=== PATIENT | female | born 1965 | race Caucasian/White ===

== ENCOUNTER 2017-12-13 15:28 | Emergency (ER) | payer BC, SELFPAY ==
[2017-12-13 15:34] VITALS: BP 138/92; RESP 16; TEMP 36.5; O2SAT 97
--- NOTE | 2017-12-13 15:50 | W.ED.GENAD ---
Discharge Plan Discharge Details Chief Complaint: AnimalBite Primary Care Provider: Danny Davies ED Provider: Owen Muller Home Meds and New Rx's Prescriptions: No Action venlafaxine 75 MG tablet 75 mg PO BID Qty: 180 RF: 0 Medical Decision Making 52-year-old female who was either bitten or scratched by a wild raccoon this morning in the left hand. She is otherwise healthy woman. She was given rabies immunoglobulin as well as vaccine and will require completion of the course through the outpatient setting, which I have ordered. Patient understands plan and return precautions. HPI General Mode of arrival: ambulatory. Date/Time Provider Initiated Documentation: 12/13/17 15:32. Limitations to Documentation: no limitations. Information obtained by: patient. History of Present Illness described as mild, and is localized to the left and upper extremity. Patient reports no radiation. Patient started experiencing this hour(s) and it has been constant. No relieving factors improve symptom(s), No exacerbating factors reported . HPI Narrative: Animal bite or scratch: 52-year-old female states she set out her cat's food this morning and was bitten or scratched by a wild raccoon on her long finger. She said that she applied alcohol and pressure to the wound which stopped the bleeding. She was then referred to the ER this afternoon by her primary care physician. She has otherwise been well. She was not injured in any way Related Data Home Medications Medication Instructions Recorded Confirmed venlafaxine 75 mg PO BID #180 tab-cap 10/03/17 12/13/17 Previous Rx's Medication Instructions Recorded venlafaxine 75 mg PO BID #180 tab-cap 10/03/17 Allergies Allergy/AdvReac Type Severity Reaction Status Date / Time citalopram AdvReac Unknown Unverified 12/13/17 15:39 General Stated Complaint: AnimalBite BRAD[place]ORD: 4 Review of Systems Review of Systems 6 systems reviewed and otherwise negative PFSH Family History Mother Substance abuse Essential hypertension Macular hole Heart disease Hyperlipidemia Father Substance abuse Essential hypertension Heart disease Hyperlipidemia Neoplasm Sister Hyperlipidemia Neoplasm Grandfather Essential hypertension Heart disease Hyperlipidemia Neoplasm Grandmother Diabetes Alzheimer disease Heart disease Son Essential hypertension Depression Daughter No problems noted. Medical History Anxiety Irritable colon Migraine Social History Smoking/Tobacco Use Status: Never Surgical History Cholecystectomy (~2000) dental surgery melanoma excision (~02/2015) Exam Narrative Exam Narrative: GEN: awake, alert, oriented 3. Pleasant, well groomed, interactive. HEAD: Normocephalic, atraumatic CHEST/RESP: Nontender, clear to auscultation bilateral, no wheeze/rhonchi/rales CARDIOVASCULAR: RRR, no murmur, rub tigist. 2+ Rad pulse bilateral EXT: Full ROM, no edema, no rash. Question subtle abrasion left long index finger volar aspect. Neuro: Grossly normal neurologic exam, conversant, interactive. Psych: Speech fluent, thoughts congruent, affect normal Course Vital Signs Temperature 36.5 C 12/13/17 15:34 Respiratory Rate 16 12/13/17 15:34 Blood Pressure 138/92 H 12/13/17 15:34 Pulse Oximetry 97 12/13/17 15:34 Temperature 36.5 C 12/13/17 15:34 Temperature Source Skin 12/13/17 15:34 Respiratory Rate 16 12/13/17 15:34 Respiratory Effort 12/13/17 15:37 Blood Pressure 138/92 H 12/13/17 15:34 Blood Pressure Position Sitting 12/13/17 15:34 Pulse Oximetry 97 12/13/17 15:34 Oxygen Delivery Method Room Air 12/13/17 15:34 Oxygen Flow Rate 0 12/13/17 15:34 Pain Level 0 12/13/17 15:34
--- NOTE | 2017-12-13 15:55 | ED.GENADUL_ITS ---
Discharge Plan Discharge Details Chief Complaint: AnimalBite Primary Care Provider: Danny Davies ED Provider: Owen Muller Home Meds and New Rx's Prescriptions: No Action venlafaxine 75 MG tablet 75 mg PO BID Qty: 180 RF: 0 Medical Decision Making 52-year-old female who was either bitten or scratched by a wild raccoon this morning in the left hand. She is otherwise healthy woman. She was given rabies immunoglobulin as well as vaccine and will require completion of the course through the outpatient setting, which I have ordered. Patient understands plan and return precautions. HPI General Mode of arrival: ambulatory . Date/Time Provider Initiated Documentation: 12/13/17 15:32 . Limitations to Documentation: no limitations . Information obtained by: patient . History of Present Illness described as mild, and is localized to the left and upper extremity. Patient reports no radiation. Patient started experiencing this hour(s) and it has been constant. No relieving factors improve symptom(s), No exacerbating factors reported . HPI Narrative: Animal bite or scratch: 52-year-old female states she set out her cat's food this morning and was bitten or scratched by a wild raccoon on her long finger. She said that she applied alcohol and pressure to the wound which stopped the bleeding. She was then referred to the ER this afternoon by her primary care physician. She has otherwise been well. She was not injured in any way Related Data Home Medications Medication Instructions Recorded Confirmed venlafaxine 75 mg PO BID #180 tab-cap 10/03/17 12/13/17 Previous Rx's Medication Instructions Recorded venlafaxine 75 mg PO BID #180 tab-cap 10/03/17 Allergies Allergy/AdvReac Type Severity Reaction Status Date / Time citalopram AdvReac Unknown Unverified 12/13/17 15:39 General Stated Complaint: AnimalBite BRAD[place]ORD: 4 Review of Systems Review of Systems 6 systems reviewed and otherwise negative PFSH Family History Mother Substance abuse Essential hypertension Macular hole Heart disease Hyperlipidemia Father Substance abuse Essential hypertension Heart disease Hyperlipidemia Neoplasm Sister Hyperlipidemia Neoplasm Grandfather Essential hypertension Heart disease Hyperlipidemia Neoplasm Grandmother Diabetes Alzheimer disease Heart disease Son Essential hypertension Depression Daughter No problems noted. Medical History Anxiety Irritable colon Migraine Social History Smoking/Tobacco Use Status: Never Surgical History Cholecystectomy (~2000) dental surgery melanoma excision (~02/2015) Exam Narrative Exam Narrative: GEN: awake, alert, oriented 3. Pleasant, well groomed, interactive. HEAD: Normocephalic, atraumatic CHEST/RESP: Nontender, clear to auscultation bilateral, no wheeze/rhonchi/rales CARDIOVASCULAR: RRR, no murmur, rub tigist. 2+ Rad pulse bilateral EXT: Full ROM, no edema, no rash. Question subtle abrasion left long index finger volar aspect. Neuro: Grossly normal neurologic exam, conversant, interactive. Psych: Speech fluent, thoughts congruent, affect normal Course Vital Signs Temperature 36.5 C 12/13/17 15:34 Respiratory Rate 16 12/13/17 15:34 Blood Pressure 138/92 H 12/13/17 15:34 Pulse Oximetry 97 12/13/17 15:34 Temperature 36.5 C 12/13/17 15:34 Temperature Source Skin 12/13/17 15:34 Respiratory Rate 16 12/13/17 15:34 Respiratory Effort 12/13/17 15:37 Blood Pressure 138/92 H 12/13/17 15:34 Blood Pressure Position Sitting 12/13/17 15:34 Pulse Oximetry 97 12/13/17 15:34 Oxygen Delivery Method Room Air 12/13/17 15:34 Oxygen Flow Rate 0 12/13/17 15:34 Pain Level 0 12/13/17 15:34
--- NOTE | 2017-12-13 16:07 | NUR.NOTE ---
message left with [facility] health officer gosia schaffer asking for a call back to report animal bite.Nursing Note:
--- NOTE | 2017-12-13 16:19 | NUR.NOTE ---
Jan [facility] Health Officer returned my call and bite report was given and faxed to the per diem clerk at [phone].Nursing Note:
[2017-12-13] MEDS: Rabies Immune Globulin 1,500 UNIT/5 ML VIAL 1200 UNITS IM (16:20)
[2017-12-13 16:35] VITALS: BP 138/92; PULSE 80; RESP 16; TEMP 36.5; O2SAT 97
== END 2017-12-13 16:34 | disposition home or self-care (01) ==
LOC: ER 16:17
PROVIDERS: Emergency Provider Emergency Medicine; PCP Family Medicine
DX: S61.253A Open bite of left middle finger without damage to nail, initial encounter (principal); Z20.3 Contact with and (suspected) exposure to rabies; W55.51XA Bitten by raccoon, initial encounter
CPT/HCPCS: 90471; 96372; 99284; 90675; 99283

== ENCOUNTER 2017-12-16 00:13 | Outpatient (RCR) | payer BC, SELFPAY | END 2017-12-17 23:59 | disposition home or self-care (01) | LOC: INF 00:13 | PROVIDERS: PCP Family Medicine; Visit Provider Emergency Medicine | DX: Z20.3 Contact with and (suspected) exposure to rabies (principal) | CPT/HCPCS: 96372; 90675 ==

== ENCOUNTER 2017-12-27 00:40 | Outpatient (RCR) | payer BC, SELFPAY | END 2018-01-17 23:59 | disposition home or self-care (01) | LOC: INF 00:40 | PROVIDERS: PCP Family Medicine; Visit Provider Emergency Medicine | DX: Z20.3 Contact with and (suspected) exposure to rabies (principal) | CPT/HCPCS: 96372; 90675 ==

== ENCOUNTER 2018-06-12 10:59 | Emergency (ER) | payer OTHER, BC, SELFPAY ==
[2018-06-12 11:09] VITALS: BP 154/98; PULSE 94; RESP 18; TEMP 36.7; O2SAT 97
[2018-06-12 11:28] LABS: Bilirubin Negative (Negative); Blood Small (Negative); Clarity Clear; Glucose Negative (Negative); Ketones Negative (Negative); Leukocyte Esterase Negative (Negative); Nitrite Negative (Negative); Specific Gravity 1.025 (1.005-1.025); Urobilinogen 0.2 EU/dL (Up TO 0.2); pH 5.5 (5-8)
[2018-06-12 11:36] LABS: Bacteria Few HPF (Negative); C & S Indicated? No; Casts Negative LPF (Negative); Crystals Negative HPF (Negative); Epithelial Cells Few HPF (Negative); Mucus Moderate (Negative); WBC 0-2 HPF (0-5)
--- NOTE | 2018-06-12 12:00 | DI.CT_ITS ---
SYMPTOMS/DIAGNOSIS: LEFT FLANK PAIN, ? KIDNEY STONES ABDOMINAL AND PELVIC CT: CT examination of the abdomen and pelvis was performed without contrast administration. Images obtained through the lung bases were unremarkable. Note is made of multiple homogeneous low attenuation hepatic masses, the largest about 34 mm in diameter in the left hepatic lobe, and the findings are consistent with multiple hepatic cysts. Gallbladder appears to have been surgically removed. No biliary dilatation seen. Pancreas is unremarkable by noncontrast criteria. Spleen is unremarkable in appearance. Abdominal aorta is of normal diameter. No significant abdominal wall hernia seen. No significant abdominal or pelvic adenopathy identified. Appendix is normal. No evidence of bowel obstruction. There is wall thickening of the distal descending colon and proximal sigmoid and there is associated pericolonic fat edema at the descending sigmoid junction. Findings are consistent with acute diverticulitis. No evidence of perforation or abscess formation. Incidental note is also made of a lobulated left adnexal mass, which is of low attenuation and which measures up to about 7 cm in diameter. The findings are consistent with ovarian cysts, but other etiologies including neoplastic disease cannot be excluded in this age group. Correlation with pelvic ultrasound recommended. CONCLUSION: 1. Findings consistent with acute diverticulitis at the descending sigmoid junction, no evidence of abscess or perforation. 2. Left adnexal mass, likely cystic but pelvic ultrasound recommended to exclude neoplastic disease. 3. Numerous hepatic masses with appearance consistent with cysts.
--- NOTE | 2018-06-12 12:14 | ED.GENADUL_ITS ---
Discharge Plan Disposition Patient Disposition: HOME Condition: Stable Discharge Details Chief Complaint: FlankPain Clinical Impression: Acute diverticulitis, Mass of left ovary Primary Care Provider: Danny Davies ED Provider: Lyly Jansen Home Meds and New Rx's Prescriptions: New ciprofloxacin HCl 500 mg tablet 500 mg PO BID 10 Days Qty: 20 RF: 0 metronidazole [Flagyl] 500 mg tablet 500 mg PO TID 10 Days Qty: 30 RF: 0 Continued MegaRed Ninole-3 Krill Oil [id number] mg capsule 1 cap PO DAILY RF: 0 multivitamin with minerals [Hair,Skin and Nails] tablet 3 tab PO DAILY RF: 0 venlafaxine 75 mg tablet 75 mg PO BID Qty: 180 RF: 0 Discharge Instructions Instructions: Diverticulitis (ED), Diverticulitis Diet (ED) Additional Instructions: Take the antibiotics as directed until finished. Take Tylenol or Motrin as needed and directed for pain. Call your primary care doctor tomorrow to schedule a follow-up appointment for reevaluation of your diverticulitis and for referral for an outpatient pelvic ultrasound for further evaluation of the ovarian mass noted on your CAT scan. Return immediately to the emergency department any worsening or new concerning symptoms. Discharge Data Discharge Physician: Lyly Jansen Medical Decision Making 52-year-old female presents with intermittent sharp left lower quadrant abdominal pain and bloody diarrhea. Pain present for 5 days, 1 day of bloody diarrhea, none for the past 3 days. Patient arrived while the ER was experiencing a medical surge. Based on her triage complaint, labs and CT for renal colic were ordered based on left flank pain. Upon my evaluation, vitals within normal limits. Patient has tenderness to palpation of her left lower quadrant. Pt is post-menopausal. CT reviewed with radiology and notes sigmoid and descending colon diverticulitis. There is also noted a large multi lobulated ovarian mass and recommended outpatient ultrasound for further evaluation of this. Labs pending. Will continue IV fluids and give a dose of Toradol. If labs within normal limits, okay to discharge to home. 1500 --labs reviewed and note a white blood cell count of 13.74. Potassium 3.2, given 40 mEq of potassium p.o. Urinalysis negative. Labs and imaging reviewed with surgery Dr. Argueta. As patient is hemodynamically stable, and appears nontoxic, even though the white count is 13, appears appropriate for discharge to home. Patient last had a colonoscopy in 2014. Patient feels good to go home. She is instructed to call her primary care doctor for reevaluation this week for data for diverticulitis and for referral for outpatient ultrasound for further evaluation of the left ovarian mass. Patient instructed return here immediately with any worsening symptoms such as fever or worsening pain. Medical Records Medical records reviewed: Yes I reviewed the patient's medical records. Imaging Data Radiologic Study: Radiologist's impression: ABDOMINAL AND PELVIC CT: CT examination of the abdomen and pelvis was performed without contrast administration. Images obtained through the lung bases were unremarkable. Note is made of multiple homogeneous low attenuation hepatic masses, the largest about 34 mm in diameter in the left hepatic lobe, and the findings are consistent with multiple hepatic cysts. Gallbladder appears to have been surgically removed. No biliary dilatation seen. Pancreas is unremarkable by noncontrast criteria. Spleen is unremarkable in appearance. Abdominal aorta is of normal diameter. No significant abdominal wall hernia seen. No significant abdominal or pelvic adenopathy identified. Appendix is normal. No evidence of bowel obstruction. There is wall thickening of the distal descending colon and proximal sigmoid and there is associated pericolonic fat edema at the descending sigmoid junction. Findings are consistent with acute diverticulitis. No evidence of perforation or abscess formation. Incidental note is also made of a lobulated left adnexal mass, which is of low attenuation and which measures up to about 7 cm in diameter. The findings are consistent with ovarian cysts, but other etiologies including neoplastic disease cannot be excluded in this age group. Correlation with pelvic ultrasound recommended. CONCLUSION: 1. Findings consistent with acute diverticulitis at the d escending sigmoid junction, no evidence of abscess or perforation. 2. Left adnexal mass, likely cystic but pelvic ultrasound recommended to exclude neoplastic disease. 3. Numerous hepatic masses with appearance consistent with cysts. Lab Data Lab results reviewed: Yes I reviewed the patient's lab results. Laboratory Tests Range/Units 06/12/18 06/12/18 06/12/18 11:15 13:10 13:10 WBC Cancelled RBC Cancelled Hgb Cancelled Hct Cancelled MCV Cancelled MCH Cancelled MCHC Cancelled RDW Cancelled Plt Count Cancelled MPV Cancelled Immature Gran % Cancelled Neutrophils % Cancelled Band Neutrophils % Cancelled Lymphocytes % Cancelled Atypical Lymphs % Cancelled Monocytes % Cancelled Eosinophils % Cancelled Basophils % Cancelled Metamyelocytes % Cancelled Myelocytes % Cancelled Promyelocytes % Cancelled Absolute Neutrophils Cancelled Absolute Lymphocytes Cancelled Absolute Monocytes Cancelled Absolute Eosinophils Cancelled Absolute Basophils Cancelled Nucleated RBCs Cancelled Differential Comment Cancelled Other Cell Type Cancelled RBC Morphology Cancelled Polychromasia Cancelled Hypochromasia Cancelled Poikilocytosis Cancelled Basophilic Stippling Cancelled Anisocytosis Cancelled Microcytosis Cancelled Macrocytosis Cancelled Spherocytes Cancelled Target Cells Cancelled Tear Drop Cells Cancelled Ovalocytes Cancelled Stomatocytes Cancelled Thao-[place] Bodies Cancelled Fred Cells Cancelled Acanthocytes (Spur) Cancelled Schistocytes Cancelled Sodium Cancelled Potassium Cancelled Chloride Cancelled Carbon Dioxide Cancelled Anion Gap Cancelled BUN Cancelled Creatinine Cancelled Estimated GFR/1.73 m2 Cancelled Glucose Cancelled Calcium Cancelled Total Bilirubin Cancelled AST Cancelled ALT Cancelled Alkaline Phosphatase Cancelled Total Protein Cancelled Albumin Cancelled Lipase Cancelled Urine Color (Yellow) Yellow Urine Clarity Clear Urine pH (5-8) 5.5 Ur Specific [place] (1.005-1.025) 1.025 Urine Protein (Negative) mg/dL Negative Urine Ketones (Negative) mg/dL Negative Urine Blood (Negative) Small H Urine Nitrite (Negative) Negative Urine Bilirubin (Negative) Negative Urine Urobilinogen (Up TO 0.2) EU/dL 0.2 Ur Leukocyte Esterase (Negative) Negative Urine RBC (0-2) 3-5 H Urine WBC (0-5) HPF 0-2 Ur Epithelial Cells (Negative) HPF Few Urine Crystals (Negative) HPF Negative Urine Bacteria (Negative) HPF Few Urine Casts (Negative) LPF Negative Urine Mucus (Negative) Moderate Ur Culture Indicated? No Urine Glucose (Negative) mg/dL Negative Range/Units 06/12/18 06/12/18 13:49 13:49 WBC 13.74 H RBC 4.16 Hgb 12.6 Hct 36.6 MCV 88.0 MCH 30.3 MCHC 34.4 RDW 12.6 Plt Count 307 MPV 9.4 Immature Gran % 0.3 Neutrophils % 71.9 Band Neutrophils % Lymphocytes % 18.1 Atypical Lymphs % Monocytes % 8.2 Eosinophils % 1.4 Basophils % 0.1 Metamyelocytes % Myelocytes % Promyelocytes % Absolute Neutrophils 9.88 H Absolute Lymphocytes 2.49 Absolute Monocytes 1.13 H Absolute Eosinophils 0.19 Absolute Basophils 0.01 Nucleated RBCs Differential Comment Other Cell Type RBC Morphology Polychromasia Hypochromasia Poikilocytosis Basophilic Stippling Anisocytosis Microcytosis Macrocytosis Spherocytes Target Cells Tear Drop Cells Ovalocytes Stomatocytes Thao-Guayanilla Bodies Fred Cells Acanthocytes (Spur) Schistocytes Sodium 141 Potassium 3.2 L Chloride 103 Carbon Dioxide 28.6 Anion Gap 9.4 BUN 13 Creatinine 0.81 Estimated GFR/1.73 m2 >= 60.00 Glucose 98 Calcium 9.8 Total Bilirubin 0.4 AST 22 ALT 32 Alkaline Phosphatase 70 Total Protein 6.6 Albumin 3.3 L Lipase 162 Urine Color (Yellow) Urine Clarity Urine pH (5-8) Ur Specific [place] (1.005-1.025) Urine Protein (Negative) mg/dL Urine Ketones (Negative) mg/dL Urine Blood (Negative) Urine Nitrite (Negative) Urine Bilirubin (Negative) Urine Urobilinogen (Up TO 0.2) EU/dL Ur Leukocyte Esterase (Negative) Urine RBC (0-2) Urine WBC (0-5) HPF Ur Epithelial Cells (Negative) HPF Urine Crystals (Negative) HPF Urine Bacteria (Negative) HPF Urine Casts (Negative) LPF Urine Mucus (Negative) Ur Culture Indicated? Urine Glucose (Negative) mg/dL HPI General Mode of arrival: ambulatory . Date/Time Provider Initiated Documentation: 06/12/18 11:30 . Limitations to Documentation: no limitations . Information obtained by: patient . HPI Narrative: Patient is a 52-year-old female who presents with intermittent left lower quadrant pain for the past 5 days. Patient states the pain feels sharp, intermittent and occasionally with radiation to her left flank. She states the pain is now 5/10. She states the pain first started 5 days ago, followed by bloody diarrhea the next day. She st ates her last bowel movement was 3 days ago. She states her pain resolved for 2 days and then returned again last night. She admits to occasional nausea. She denies fever, vomiting, recent antibiotics or urinary symptoms. Related Data Home Medications Medication Instructions Recorded Confirmed venlafaxine 75 mg tablet 75 mg PO BID #180 tab-cap 04/06/18 06/12/18 ciprofloxacin HCl 500 mg PO BID 10 Days #20 tab 06/12/18 krill 500 mg-omega 3 115 mg-dha 30 1 cap PO DAILY 06/12/18 06/12/18 mg-epa 64 [id number] capsule metronidazole [Flagyl] 500 mg PO TID 10 Days #30 tab 06/12/18 multivitamin with minerals tablet 3 tab PO DAILY tab 06/12/18 06/12/18 Previous Rx's Medication Instructions Recorded venlafaxine 75 mg tablet 75 mg PO BID #180 tab-cap 04/06/18 ciprofloxacin HCl 500 mg PO BID 10 Days #20 tab 06/12/18 metronidazole [Flagyl] 500 mg PO TID 10 Days #30 tab 06/12/18 Allergies Allergy/AdvReac Type Severity Reaction Status Date / Time citalopram AdvReac Unknown Unverified 06/12/18 10:20 General Stated Complaint: FlankPain BRADFORD: 3 Review of Systems Review of Systems All systems reviewed & are unremarkable except as noted in HPI and below Constitutional Reports as per HPI, Denies chills and Denies fever(s) Eyes Denies blurry vision ENT Denies dizziness, Denies sore throat and Denies throat swelling Cardiovascular Denies chest pain and Denies dyspnea Respiratory Denies cough and Denies dyspnea Gastrointestinal Reports abdominal pain, Reports diarrhea, Reports nausea and Denies vomiting Genitourinary Denies hematuria and Denies dysuria Musculoskeletal Denies back pain and Denies numbness Integumentary/Breasts Denies lesions and Denies rash Neurologic Denies dizziness, Denies focal weakness and Denies numbness Allergic/Immunologic Denies throat swelling PFSH Medical History Anxiety Irritable colon Migraine Surgical History Cholecystectomy (~2000) dental surgery melanoma excision (~02/2015) Family History Mother Substance abuse Essential hypertension Macular hole Heart disease Hyperlipidemia Father Substance abuse Essential hypertension Heart disease Hyperlipidemia Neoplasm Sister Hyperlipidemia Neoplasm Grandfather Essential hypertension Heart disease Hyperlipidemia Neoplasm Grandmother Diabetes Alzheimer disease Heart disease Son Essential hypertension Depression Daughter No problems noted. Social History Smoking/Tobacco Use Status: Never Alcohol Intake: never Drug use: Never Substance use type: does not use Do you feel safe at home: Yes Do you feel safe in your relationship?: Yes Exam Const General: cooperative and healthy appearing Orientation: alert and awake HENVA Head: normal to inspection Ears: hearing grossly normal bilaterally and external ears normal General nose exam: external nose normal Face and sinus: normal facial exam Mouth: oral mucosae normal Eyes General: appearance normal, both eyes and all related structures Eyelids: eyelids normal EOM: EOM intact bilaterally Neck Neck: normal visual inspection Lymphatic: no lymphadenopathy noted Chest Chest: normal inspection of the chest Resp Effort & Inspection: normal respiratory effort and able to speak in complete sentences Auscultation: clear to auscultation bilaterally Cardio Rate: regular rate Rhythm: regular rhythm GI Inspection: normal to inspection Palpation: soft, not firm, no guarding, no hepatosplenomegaly, no masses and tender in the LLQ Auscultation: normal bowel sounds Back/Spine/Pelvis Back: no CVA tenderness Skin General skin exam: no rashes or lesions noted Neuro General: alert and awake Cognition: normal cognition Speech: speech normal Gait: normal gait Motor: muscle tone normal throughout Sensory Exam: no sensory deficits noted Extrem General: normal to inspection, full ROM, normal capillary refill and no edema Psych Appearance: grossly normal Mental Status: mental status grossly normal Speech and Movement: speech and movement normal Affect: normal affect Thought Process: normal Course Vital Signs Temperature 98.1 F 06/12/18 11:09 Pulse 94 H 06/12/18 11:09 Respiratory Rate 18 06/12/18 11:09 Blood Pressure 154/98 H 06/12/18 11:09 Pulse Oximetry 97 06/12/18 11:09 Temperature 98.1 F 06/12/18 11:09 Temperature Source Temporal Artery Scan 06/12/18 11:09 Pulse 94 H 06/12/18 11:09 Respiratory Rate 18 06/12/18 11:09 Respiratory Effort Non-Labored 06/12/18 11:11 Blood Pressure 154/98 H 06/12/18 11:09 Blood Pressure Position Sitting 06/12/18 11:09 Pulse Oximetry 97 06/12/18 11:09 Oxygen Delivery Method Room Air 06/12/18 11:09 Oxygen Flow Rate 0 06/12/18 11:09 Pain Level 8 06/12/18 11:09 Comment 06/12/18 11:09 Lab/Test Results Lab/Test Results: Laboratory Tests Range/Units 06/12/18 11:15 Urine Color (Yellow) Yellow Urine Clarity Clear Urine pH (5-8) 5.5 Ur Specific [place] (1.005-1.025) 1.025 Urine Protein (Negative) mg/dL Negative Urine Ketones (Negative) mg/dL Negative Urine Blood (Negative) Small H Urine Nitrite (Negative) Negative Urine Bilirubin (Negative) Negative Urine Urobilinogen (Up TO 0.2) EU/dL 0.2 Ur Leukocyte Esterase (Negative) Negative Urine RBC (0-2) 3-5 H Urine WBC (0-5) HPF 0-2 Ur Epithelial Cells (Negative) HPF Few Urine Crystals (Negative) HPF Negative Urine Bacteria (Negative) HPF Few Urine Casts (Negative) LPF Negative Urine Mucus (Negative) Moderate Ur Culture Indicated? No Urine Glucose (Negative) mg/dL Negative
[2018-06-12 12:55] VITALS: BP 120/78; PULSE 79; RESP 14; TEMP 37.1; O2SAT 97
[2018-06-12] MEDS: Normal Saline 1,000 ML 1000 ML IV ×2 (13:25→14:09)
[2018-06-12 13:55] LABS: Abs Immature Grans 0.04 k/cumm (0.0-0.09); Absolute Eosinophil Count 0.19 k/cumm (0.0-0.7); Absolute Lymphocyte Count 2.49 k/cumm (1.2-3.4); Absolute Monocyte Count 1.13 k/cumm (0.11-0.7); Basophils % 0.1; Eosinophils % 1.4; HCT 36.6 % (36.0-46.0); HGB 12.6 g/dL (12.0-15.5); Immature Grans % 0.3; Lymphocytes % 18.1; Mean Corp. HGB Concentration 34.4 g/dL (32.0-36.0); Mean Corpuscular Hemoglobin 30.3 pg (27.0-33.0); Mean Platelet Volume 9.4 fL (8.0-11.0); Monocytes % 8.2; Neutrophils % 71.9; Platelet Count 307 x1000/uL (130-400); RBC 4.16 m/cumm (4.00-5.20); RBC Distribution Width 12.6 % (11.7-14.6); White Blood Cell Count 13.74 k/cumm (4.4-10.8)
[2018-06-12 13:56] LABS: Absolute Basophil Count 0.01 k/cumm (0.0-0.2); Absolute Neutrophil Count 9.88 k/cumm (1.2-6.7)
[2018-06-12] MEDS: Ketorolac 30 MG/ML VIAL IVP (14:08)
[2018-06-12 14:09] LABS: ALT 32 U/L (12-78); AST 22 U/L (15-37); Albumin 3.3 g/dL (3.4-5.0); Alkaline Phosphatase 70 U/L (46-116); Anion Gap 9.4 mmol/L (3-11); BUN 13 mg/dL (7-18); Bilirubin, Total 0.4 mg/dL (0.2-1.0); CO2 28.6 mmol/L (21.0-32.0); CREATININE 0.81 mg/dL (0.55-1.02); Calcium 9.8 mg/dL (8.5-10.1); Chloride 103 mmol/L (98-107); Glucose 98 mg/dL (70-100); Lipase 162 U/L (73-393); Potassium 3.2 mmol/L (3.5-5.1); Sodium 141 mmol/L (136-145); Total Protein 6.6 g/dL (6.4-8.2)
[2018-06-12] MEDS: metroNIDAZOLE 500 MG TAB PO (14:58)
[2018-06-12] MEDS: Potassium Chloride 20 MEQ TABCR 40 MEQ PO (14:58)
[2018-06-12] MEDS: Ciprofloxacin 500 MG TAB PO (14:58)
== END 2018-06-12 15:18 | disposition home or self-care (01) ==
PROVIDERS: Emergency Provider Physician Assistant; PCP Family Medicine
DX: K57.30 Diverticulosis of large intestine without perforation or abscess without bleeding (principal); N83.9 Noninflammatory disorder of ovary, fallopian tube and broad ligament, unspecified
CPT/HCPCS: 80053; 83690; 96361; 96374; 99284; 74176; 81003; 81015; 85025; J1885

== ENCOUNTER 2018-06-29 00:23 | Outpatient (CLI) | payer OTHER, SELFPAY ==
--- NOTE | 2018-06-29 13:54 | DI.US_ITS ---
SYMPTOMS/DIAGNOSIS: LEFT ADNEXA MASS, OVARIAN MASS, N83.9 PELVIC ULTRASOUND: Pelvic ultrasound was performed transabdominally and transvaginally. Please see the accompanying data sheet for measurements of the pelvic structures. The uterus is unremarkable in appearance with a 4 mm thick homogeneous endometrial stripe. There is septated cystic left ovarian mass. There are areas of thickening of the septation and also wall thickening appears to be present. The findings as described are indeterminate and the possibility of neoplastic disease in this age group is not excluded. No previous pelvic ultrasound available for comparison. No free fluid identified in the cul-de-sac. Limited scanning of the kidneys is unremarkable. CONCLUSION: Indeterminate left adnexal mass as noted on recent CT, this measures up to about 7 cm in diameter. Biopsy is suggested to rule out neoplastic disease.
== END 2018-06-29 00:43 ==
PROVIDERS: PCP Family Medicine; Visit Provider Family Medicine
DX: N83.292 Other ovarian cyst, left side (principal); R19.09 Other intra-abdominal and pelvic swelling, mass and lump
CPT/HCPCS: 76830; 76856

== ENCOUNTER 2019-01-30 07:00 | Outpatient (CLI) | payer OTHER, SELFPAY ==
[2019-01-30 12:43] LABS: Abs Immature Grans 0.03 k/cumm (0.0-0.09); Absolute Basophil Count 0.03 k/cumm (0.0-0.2); Absolute Eosinophil Count 0.15 k/cumm (0.0-0.7); Absolute Lymphocyte Count 3.14 k/cumm (1.2-3.4); Absolute Monocyte Count 0.89 k/cumm (0.11-0.7); Absolute Neutrophil Count 8.31 k/cumm (1.2-6.7); Basophils % 0.2; Eosinophils % 1.2; HCT 38.4 % (36.0-46.0); HGB 12.7 g/dL (12.0-15.5); Immature Grans % 0.2; Mean Corp. HGB Concentration 33.1 g/dL (32.0-36.0); Mean Corpuscular Hemoglobin 29.1 pg (27.0-33.0); Mean Corpuscular Volume 88.1 fL (80-95); Mean Platelet Volume 9.9 fL (8.0-11.0); Monocytes % 7.1; Neutrophils % 66.3; Platelet Count 386 x1000/uL (130-400); RBC 4.36 m/cumm (4.00-5.20); RBC Distribution Width 12.5 % (11.7-14.6); White Blood Cell Count 12.54 k/cumm (4.4-10.8)
[2019-01-30 13:56] LABS: ALT 22 U/L (14-59); AST 14 U/L (15-37); Albumin 3.9 g/dL (3.4-5.0); Alkaline Phosphatase 79 U/L (46-116); Anion Gap 6.3 mmol/L (3-11); BUN 16 mg/dL (7-18); Bilirubin, Total 0.4 mg/dL (0.2-1.0); CO2 31.7 mmol/L (21.0-32.0); CREATININE 0.89 mg/dL (0.55-1.02); Calcium 9.3 mg/dL (8.5-10.1); Chloride 103 mmol/L (98-107); Glucose 90 mg/dL (70-100); Potassium 3.3 mmol/L (3.5-5.1); Sodium 141 mmol/L (136-145); Total Protein 7.3 g/dL (6.4-8.2)
== END 2019-01-30 07:20 ==
PROVIDERS: PCP Family Medicine; Visit Provider Family Medicine
DX: K57.92 Diverticulitis of intestine, part unspecified, without perforation or abscess without bleeding (principal)
CPT/HCPCS: 36415; 80053; 85025

== ENCOUNTER 2019-01-30 15:02 | Outpatient (CLI) | payer OTHER, SELFPAY ==
--- NOTE | 2019-01-30 16:05 | DI.CT_ITS ---
EXAM: CT ABDOMEN PELVIS W CLINICAL HISTORY: lower mid abdominal pain radiates back. + rebound,acute TECHNIQUE: Post IV and oral contrast COMPARISON: CT renal colic wo from 06/12/2018 FINDINGS: There is motion on the mid portion of the scan. There is marked wall thickening in the sigmoid colo n in region of numerous diverticulae. There is stranding in the surrounding fat consistent with dive rticulitis. There is no evidence of abscess or perforation. The appendix appears normal. There is no small bowel dilatation. The lung bases are clear. The liver again shows multiple cysts. The patie nt is status post cholecystectomy. There is motion at the inferior aspect of the liver and region o f the pancreas and lower poles of the kidneys. The spleen is normal in size. Previously noted left adnexal cystic lesions are no longer present. The left ovary is not seen. The bladder is unremarkab le although there is some mass effect on the lateral aspect of the bladder. There is a fatty contain ing right inguinal hernia. The aorta is normal in diameter. IMPRESSION: Severe sigmoid diverticulitis. No evidence of perforation or abscess.
[2019-01-30] MEDS: Breeza Beverage 473 ML BTL PO ×2 (16:09→16:10)
[2019-01-30] MEDS: Omnipaque 350 MG/ML 100 ML BTL 81 ML IJ (16:09)
[2019-01-30] MEDS: Omnipaque 350 MG/ML 50 ML BTL PO (16:10)
--- NOTE | 2019-01-30 16:39 | DI.VRAD_ITS ---
PROCEDURE INFORMATION: Exam: CT Abdomen And Pelvis With Contrast Exam date and time: 01/30/2019 4:00 PM Clinical history: 53 years old, female; Localized; Patient HX: Low and mid abdominal pain radiates to lower back plus rebound acute. Diverticulitis. TECHNIQUE: Imaging protocol: Computed tomography of the abdomen and pelvis with intravenous contrast. Radiation optimization: All CT scans at this facility use at least one of these dose optimization techniques: automated exposure control; mA and/or kV adjustment per patient size (includes targeted exams where dose is matched to clinical indication); or iterative reconstruction. Contrast material: OMNIPAQUE 350; Contrast volume: 81 ml; Contrast route: IV; COMPARISON: US PELVIS TRANSVAGINAL 06/29/2018 6:50 AM FINDINGS: Liver: Small hypodensities in the liver too small to completely characterize but statistically usually represents a benign cyst or hemangioma. The largest is a benign cyst measuring 3.4 cm. Small amount of fluid at the inferior aspect of the liver. Gallbladder and bile ducts: There are surgical clips in gallbladder fossa but no biliary tract calculi. Pancreas: Normal. No ductal dilation. Spleen: Normal. No splenomegaly. Adrenals: Normal. No mass. Kidneys and ureters: Normal. No hydronephrosis. Stomach and bowel: Oral contrast is passed to the stomach and nondilated small bowel into the colon scars the mid transverse colon. There is severe mucosal thickening of the sigmoid colon with a large amount of ill-defined inflammatory reaction is a small amount of strand-like fluid around this area. Appendix: No evidence of appendicitis. Intraperitoneal space: There is no well-defined fluid collection or distal extraluminal air. Vasculature: Unremarkable. No abdominal aortic aneurysm. Lymph nodes: Unremarkable. No enlarged lymph nodes. Bladder: Unremarkable as visualized. Reproductive: Unremarkable as visualized. Bones/joints: Moderate degenerative change facet joints lower lumbar spine. Soft tissues: Unremarkable. IMPRESSION: Severe diverticulitis of the sigmoid colon without evidence of abscess or distal extraluminal air the site of the diverticulitis is slightly more distal than that occurred on 06/12/2018. SIGNIFICANT FINDING REPORT Dictated and Authenticated by: Piter Ferrell MD. Ordering:KIRT Delgado MD
== END 2019-01-30 15:22 ==
LOC: DI 15:05 → MS 18:52 → DI 11-24 00:09
PROVIDERS: PCP Family Medicine; Visit Provider Family Medicine
DX: R10.31 Right lower quadrant pain (principal); K63.89 Other specified diseases of intestine; K57.30 Diverticulosis of large intestine without perforation or abscess without bleeding; K76.89 Other specified diseases of liver
CPT/HCPCS: 74177; J3490; Q9967

== ENCOUNTER 2019-01-30 20:08 | Inpatient (IN) | payer OTHER, SELFPAY ==
[2019-01-30 18:49] VITALS: BP 151/96; PULSE 88; RESP 16; TEMP 37.4; O2SAT 100
[2019-01-30 19:20] VITALS: O2SAT 98
[2019-01-30] MEDS: CIPROFLOXACIN 400 MG/200 ML BAG 200 MG IVPB (20:49)
[2019-01-30] MEDS: POTASSIUM CHLORIDE 20 MEQ/100 ML BAG 50 MEQ IVPB (20:49)
[2019-01-30] MEDS: Normal Saline 1,000 ML 125 ML IV (20:49)
[2019-01-30] MEDS: Potassium Chloride 20 MEQ TABCR 40 MEQ PO (20:50)
[2019-01-30] MEDS: Magnesium Oxide 400 MG TAB PO (20:50)
[2019-01-30] MEDS: Venlafaxine 75 MG TAB PO (21:19)
--- NOTE | 2019-01-30 21:49 | W.PM.HP.N ---
Date of service: 01/30/19 Time of Service: 21:49 Assessment and Plan Assessment and plan (1) Acute diverticulitis: Status: Acute Assessment and plan: this is her #2 attack this year. cont conservative management- IV cipro/flagyl. bowel rest. supportive care prob repeat CE in 4-6wks . Has hx of adenomatous polyp. History of Present Illness Consults Consult date: 01/30/19 Narrative: pt seen adn examined. Came to see personnel today regarding L sided abdomen pain since Monday. It started on left side and radiates into back. no fever/chills. no n/v. no appetite. + diarrhea. no blood. She had a CT today and results reviewed. She had a minor attack back in July- she was tx on outpt basis w/ PO abx. She was found to have a 7cm ovarian mass and had b/l SO. She has had no problems recovering from this. She does not appear to have that much pain or be toxic/septic. She has a lifelong Hx of constipation/straining. Her younger sister is having diverticular sx next week- also having signif problems w/ divertic. Parents have no problems. denies travel/trauma. no one else at home is ill. CT reviewed. Review of Systems All systems reviewed & are unremarkable except as noted in HPI and below PFSH Medical History Anxiety Irritable colon Migraine Surgical History Cholecystectomy (~2000) dental surgery melanoma excision (~02/2015) Family History Mother Substance abuse Essential hypertension Macular hole Heart disease Hyperlipidemia Father Substance abuse Essential hypertension Heart disease Hyperlipidemia Neoplasm SKIN Sister Hyperlipidemia Neoplasm SKIN Grandfather Essential hypertension Heart disease Hyperlipidemia Neoplasm pancreatic/liver Grandmother Diabetes Alzheimer disease Heart disease Son Essential hypertension Depression Daughter No problems noted. Social History Smoking/Tobacco Use Status: Never Alcohol Intake: never Drug use: Never Substance use type: does not use Do you feel safe at home: Yes Do you feel safe in your relationship?: Yes Meds Home Medications and Allergies Home Medications Medication Instructions Recorded Confirmed Type multivitamin with minerals 3 tab PO DAILY tab 06/12/18 01/30/19 History venlafaxine 75 mg tablet 75 mg PO BID #180 tab-cap 07/02/18 01/30/19 Rx mv,Ca,min-iron [id number] 1 tab PO DAILY 01/30/19 01/30/19 History [Hair,Skin and Nails] Allergies Allergy/AdvReac Type Severity Reaction Status Date / Time citalopram AdvReac Unknown Unverified 01/30/19 19:05 Exam Const General: cooperative, healthy appearing, comfortable, no acute distress, well developed and well groomed Nutritional Appearance: average body habitus and well nourished Orientation: alert, awake and oriented x3 HENMT Head: normal to inspection, normocephalic and atraumatic Ears: hearing grossly normal bilaterally and external ears normal General nose exam: external nose normal Face and sinus: normal facial exam and sinuses nontender Mouth: oral mucosae normal, lip normal, tongue normal and moist mucous membranes Teeth and gingiva: dentition normal Eyes General: appearance normal, both eyes and all related structures Conjunctivae: conjunctivae normal Sclera: sclerae normal Pupils: PERRL Neck Neck: normal visual inspection and full ROM Chest Chest: normal inspection of the chest Resp Effort & Inspection: normal respiratory effort, able to speak in complete sentences, no cough, no nasal flaring, not tachypneic and no use of accessory muscles Auscultation: clear to auscultation bilaterally, no rales, no rhonchi and no wheezes Cardio Jugular venous pressure: no JVD Rate: regular rate Rhythm: regular rhythm GI Inspection: normal to inspection, no edema and non-distended Palpation: soft, no masses, tender and No ascites Auscultation: hypoactive bowel sounds Other: mild localized pain in LLQ. some gaurding. no diffuse peritonits or distention. Skin General skin exam: no rashes or lesions noted Trauma: no lacerations or abrasions Neuro General: alert, oriented x3, oriented, gait normal, moves all extremities, no focal motor deficits and CN's II-XI intact bilaterally Cognition: normal cognition Speech: speech normal Gait: normal gait Motor: muscle tone normal throughout Extrem General: normal to inspection, full ROM and no clubbing, cyanosis or edema Psych Appearance: grossly normal and well kempt Mental Status: mental status grossly normal Speech and Movement: speech and movement normal Affect: normal affect Results Labs Result diagrams: 01/31/19 07:45 01/31/19 07:45 Last Vital Signs Temp 37.4 C 01/30/19 18:49 Pulse 88 01/30/19 18:49 Resp 16 01/30/19 18:49 BP 151/96 H 01/30/19 18:49 Pulse Ox 100 01/30/19 18:49
[2019-01-30] MEDS: metroNIDAZOLE 500 MG/100 ML BAG 100 MG IVPB (22:32)
[2019-01-30 23:52] VITALS: BP 121/75; PULSE 83; RESP 18; TEMP 37; O2SAT 98
[2019-01-31] MEDS: metroNIDAZOLE 500 MG/100 ML BAG 100 MG IVPB ×3 (05:42→23:03)
[2019-01-31] MEDS: Normal Saline 1,000 ML 125 ML IV ×2 (06:40→17:30)
[2019-01-31 07:35] VITALS: BP 122/75; PULSE 79; RESP 16; TEMP 37; O2SAT 97
[2019-01-31 07:50] LABS: Abs Immature Grans 0.01 k/cumm (0.0-0.09); Absolute Basophil Count 0.02 k/cumm (0.0-0.2); Absolute Eosinophil Count 0.11 k/cumm (0.0-0.7); Absolute Lymphocyte Count 1.77 k/cumm (1.2-3.4); Absolute Monocyte Count 0.52 k/cumm (0.11-0.7); Absolute Neutrophil Count 5.89 k/cumm (1.2-6.7); Basophils % 0.2; Eosinophils % 1.3; HGB 11.7 g/dL (12.0-15.5); Immature Grans % 0.1; Lymphocytes % 21.3; Mean Corp. HGB Concentration 33.4 g/dL (32.0-36.0); Mean Corpuscular Hemoglobin 29.7 pg (27.0-33.0); Mean Corpuscular Volume 88.8 fL (80-95); Mean Platelet Volume 9.3 fL (8.0-11.0); Monocytes % 6.3; Neutrophils % 70.8; Platelet Count 312 x1000/uL (130-400); RBC 3.94 m/cumm (4.00-5.20); RBC Distribution Width 12.4 % (11.7-14.6); White Blood Cell Count 8.32 k/cumm (4.4-10.8)
[2019-01-31] MEDS: CIPROFLOXACIN 400 MG/200 ML BAG 200 MG IVPB ×2 (07:58→20:46)
[2019-01-31] MEDS: Pantoprazole 40 MG VIAL IVP (07:59)
[2019-01-31] MEDS: Normal Saline Flush 10 ML SYR IVP (07:59)
[2019-01-31 08:05] LABS: ALT 20 U/L (14-59); AST 14 U/L (15-37); Albumin 3.1 g/dL (3.4-5.0); Alkaline Phosphatase 74 U/L (46-116); Anion Gap 6.9 mmol/L (3-11); BUN 9 mg/dL (7-18); Bilirubin, Total 0.6 mg/dL (0.2-1.0); CO2 27.1 mmol/L (21.0-32.0); CREATININE 0.81 mg/dL (0.55-1.02); Calcium 8.1 mg/dL (8.5-10.1); Chloride 109 mmol/L (98-107); Glucose 96 mg/dL (70-100); Magnesium 1.5 mg/dL (1.8-2.4); Sodium 143 mmol/L (136-145); Total Protein 6.5 g/dL (6.4-8.2)
--- NOTE | 2019-01-31 08:08 | PHARADMIT ---
Admission Pharmacy Clinical Review ACUTE DIVERTICULITIS Code Status Current Weight Wgt--56.7 kg Renally Cleared and Narrow Therapeutic Index Meds CrCl~ 59.2 mL/min Meds-OK QTc Value / Action Taken NONE CURRENT BP Control, Fever BP- 121/75 Tmax-37.0C Electrolytes reviewed Na-143 K+4.0 Mag-1.5 DVT Prophylaxis Lovenox 40mg Opiate Usage / Scheduled Bowel Regimen Ordered Yes, No NPO Plt/SCr for Heparin / Enoxaparin Plts-312 SCr0.81 INR for Warfarin NA H/H stable, WBC/Bands H&H- 11.7/35.0 WBC-8.32 Antibiotic appropriateness Cipro IV, Flagyl IV Cultures and Sensitivities none Surgical ABX d/c within 24 hr NA DM control / Insulin Dosing BG-96 Heart Failure (Check EF%) (ATIF's, B-Block, Diuretics) none IV to PO Switch No Home Meds Reviewed Yes Home Meds Not Ordered Compazine, Fiorinal, Ibuorofen, M-Vites Comments
[2019-01-31] MEDS: Venlafaxine 75 MG TAB PO ×2 (09:20→20:46)
--- NOTE | 2019-01-31 09:41 | W.PM.PROGNOT ---
Documented by User: NED Bauer 01/31/19 09:43 Date of Service Date of service: 01/31/19 Time of Service: 09:41 Assessment and Plan Assessment and plan (1) Acute diverticulitis: Status: Acute Assessment and plan: Continue IV antibiotics. Will trial clear liquid diet. Pain is well controlled. Encouraged ambulation and activity OOB as tolerated. Subjective Subjective Interval history since last seen: Patient reports that she had diarrhea overnight. Pain is reported to be under control at this time. Denies and nausea or vomiting. Exam Const General: cooperative, healthy appearing and comfortable Orientation: alert and oriented x3 Resp Effort & Inspection: normal respiratory effort, no audible wheezes and no cough GI Inspection: normal to inspection and non-distended Palpation: soft, no guarding and tender in the LLQ Auscultation: normal bowel sounds Objective Objective Clinical Data: Abnormal lab results 01/31/19 01/31/19 Range/Units 07:45 07:45 RBC 3.94 L (4.00-5.20) m/cumm Hgb 11.7 L (12.0-15.5) g/dL Hct 35.0 L (36.0-46.0) % Chloride 109 H (98-107) mmol/L Calcium 8.1 L (8.5-10.1) mg/dL Magnesium 1.5 L (1.8-2.4) mg/dL AST 14 L (15-37) U/L Albumin 3.1 L (3.4-5.0) g/dL Vital Signs Temperature 37.0 C 01/30/19 23:52 Temperature Source Tympanic 01/30/19 23:52 Pulse 83 01/30/19 23:52 Pulse Rhythm Regular 01/31/19 02:10 Respiratory Rate 18 01/30/19 23:52 Respiratory Effort 01/31/19 02:10 Respiratory Depth Normal 01/31/19 02:10 Respiratory Pattern Normal 01/31/19 02:10 Blood Pressure 121/75 01/30/19 23:52 Pulse Oximetry 98 01/30/19 23:52 Oxygen Delivery Method Room Air 01/30/19 23:52 Oxygen Flow Rate 0 01/30/19 23:52 Pain Level 0 01/30/19 23:52 Intake & Output 01/30/19 01/31/19 01/31/19 18:59 06:59 18:59 Intake Total 1300 / 1300 Balance 1300 / 1300 Weight 56.7 kg Intake: IV 1300 / 1300 Other: Urine Color Yellow Urine Appearance Clear Urine Odor None Comment voids independently in the toilet Voiding Methods Toilet Laboratory Results WBC 8.32 k/cumm (4.4-10.8) D 01/31/19 07:45 RBC 3.94 m/cumm (4.00-5.20) L 01/31/19 07:45 Hgb 11.7 g/dL (12.0-15.5) L 01/31/19 07:45 Hct 35.0 % (36.0-46.0) L 01/31/19 07:45 MCV 88.8 fL (80-95) 01/31/19 07:45 MCH 29.7 pg (27.0-33.0) 01/31/19 07:45 MCHC 33.4 g/dL (32.0-36.0) 01/31/19 07:45 RDW 12.4 % (11.7-14.6) 01/31/19 07:45 Plt Count 312 x1000/uL (130-400) 01/31/19 07:45 MPV 9.3 fL (8.0-11.0) 01/31/19 07:45 Immature Gran % 0.1 01/31/19 07:45 Neutrophils % 70.8 01/31/19 07:45 Lymphocytes % 21.3 01/31/19 07:45 Monocytes % 6.3 01/31/19 07:45 Eosinophils % 1.3 01/31/19 07:45 Basophils % 0.2 01/31/19 07:45 Absolute Neutrophils 5.89 k/cumm (1.2-6.7) 01/31/19 07:45 Absolute Lymphocytes 1.77 k/cumm (1.2-3.4) 01/31/19 07:45 Absolute Monocytes 0.52 k/cumm (0.11-0.7) 01/31/19 07:45 Absolute Eosinophils 0.11 k/cumm (0.0-0.7) 01/31/19 07:45 Absolute Basophils 0.02 k/cumm (0.0-0.2) 01/31/19 07:45 Sodium 143 mmol/L (136-145) 01/31/19 07:45 Potassium 4.0 mmol/L (3.5-5.1) D 01/31/19 07:45 Chloride 109 mmol/L (98-107) H 01/31/19 07:45 Carbon Dioxide 27.1 mmol/L (21.0-32.0) 01/31/19 07:45 Anion Gap 6.9 mmol/L (3-11) 01/31/19 07:45 BUN 9 mg/dL (7-18) D 01/31/19 07:45 Creatinine 0.81 mg/dL (0.55-1.02) 01/31/19 07:45 Estimated GFR/1.73 m2 >= 60.00 (mL/min/1.73m2) 01/31/19 07:45 Glucose 96 mg/dL (70-100) 01/31/19 07:45 Calcium 8.1 mg/dL (8.5-10.1) L 01/31/19 07:45 Magnesium 1.5 mg/dL (1.8-2.4) L 01/31/19 07:45 Total Bilirubin 0.6 mg/dL (0.2-1.0) 01/31/19 07:45 AST 14 U/L (15-37) L 01/31/19 07:45 ALT 20 U/L (14-59) 01/31/19 07:45 Alkaline Phosphatase 74 U/L (46-116) 01/31/19 07:45 Total Protein 6.5 g/dL (6.4-8.2) 01/31/19 07:45 Albumin 3.1 g/dL (3.4-5.0) L 01/31/19 07:45 Documented by User: Yessica Jones DO 01/31/19 10:22 Assessment and Plan Assessment and plan (1) Acute diverticulitis: Status: Acute Assessment and plan: pt seen and examined. agree w/ above continue w/ plan
--- NOTE | 2019-01-31 15:30 | CHAPLAIN ---
Osiris was sitting up in bed when I visited. She was pleasant. I Introduce myself, explained my role and offered support.
--- NOTE | 2019-01-31 15:45 | PDOC.CMIN ---
- If Service Date Differs Date of service: 01/31/19 Time of Service: 15:45 Care Management Initial Assess REASON FOR HOSPITALIZATION:: Acute diverticulitis. PAST MEDICAL HISTORY/PAST SURGICAL HISTORY:: Medical History: Anxiety, irritable colon, and migraine. Surgical History: Cholecystectomy, dental surgery, and melanoma excision. PREVIOUS FUNCTIONAL STATUS/SOCIAL/FAMILY SUPPORTS:: Osiris lives in [place] with her 24-year-old son and . The couple also has a 22 year old daughter who is away at college. Osiris shares she and her are in the midst of a divorce but for the time being they are both still living in their home. 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 She names her boyfriend and sister as family supports. Osiris is independent in the community. CURRENT FUNCTIONAL STATUS:: Osiris is lying in bed watching television when meets with her. She is pleasant and engaged. She states she is feeling a bit better and is looking forward to discharging home so she can return to work. ADVANCE DIRECTIVES:: None on file. Has patient been provided with information about the portal?: No Did the patient sign up for the portal?: No CODE STATUS:: Full Code INSURANCE COVERAGE / FINANCIAL ISSUES:: [employer]. CURRENT HOME/COMMUNITY SERVICES/EQUIPMENT:: Osiris is independent with her ADLs at baseline. She has no in-home or community services and no medical equipment. PRIMARY CARE PHYSICIAN:: Danny Davies MD, [facility]. POTENTIAL DISCHARGE NEEDS:: Follow-up with PCP and discharge plan of care. PATIENT/FAMILY EDUCATION NEEDS:: Discharge plan, limitations, follow up plan, including Ask Me [employer]. ANTICIPATED BARRIERS TO DISCHARGE:: None identified at this time. TRANSPORTATION:: Osiris will drive herself home via private vehicle when ready. PLAN:: Osiris will return home when medically cleared by provider. She will follow up with her PCP and plan of care as prescribed. Osiris will transport herself home upon discharge.
[2019-01-31 15:59] VITALS: BP 144/88; PULSE 80; RESP 16; TEMP 36.9; O2SAT 100
[2019-01-31] MEDS: Enoxaparin 40 MG/0.4 ML SYR SC (20:46)
[2019-01-31] MEDS: MAGNESIUM SULFATE 2 GM/50 ML BAG IVPB (23:03)
[2019-01-31 23:15] VITALS: BP 142/77; PULSE 77; RESP 16; TEMP 36.5; O2SAT 97
[2019-02-01] MEDS: Normal Saline 1,000 ML 125 ML IV ×2 (02:50→15:37)
[2019-02-01] MEDS: metroNIDAZOLE 500 MG/100 ML BAG 100 MG IVPB ×3 (05:27→22:33)
[2019-02-01 07:45] VITALS: BP 142/88; PULSE 74; RESP 16; TEMP 36.7; O2SAT 100
--- NOTE | 2019-02-01 08:29 | W.PM.PROGNOT ---
Date of Service Date of service: 02/01/19 Time of Service: 08:29 Assessment and Plan Assessment and plan (1) Acute diverticulitis: Status: Acute Assessment and plan: slowly getting better cont w/ bowel rest and IV abx supportive care Dr. Najera to follow for weekend labs tomorrow Subjective Subjective Interval history since last seen: Pt is seen adn examined. She still has pain in LLQ radiating into the back. She says it is no better than when she came in. no headaches. No CP or SOB. no productive cough. no dysuria. no leg pain or swelling. no fever/chills. Still having frequent liquid stools. no blood. She is tolerating cl liquids. Exam Const General: cooperative, healthy appearing, comfortable, no acute distress, well developed and well groomed Nutritional Appearance: average body habitus and well nourished Orientation: alert, awake and oriented x3 HENMT Head: normal to inspection, normocephalic and atraumatic Ears: hearing grossly normal bilaterally and external ears normal General nose exam: external nose normal Face and sinus: normal facial exam and sinuses nontender Mouth: oral mucosae normal, lip normal, tongue normal and moist mucous membranes Teeth and gingiva: dentition normal Eyes General: appearance normal, both eyes and all related structures Conjunctivae: conjunctivae normal Sclera: sclerae normal Pupils: PERRL Neck Neck: normal visual inspection and full ROM Chest Chest: normal inspection of the chest Resp Effort & Inspection: normal respiratory effort, able to speak in complete sentences, no cough, no nasal flaring, not tachypneic and no use of accessory muscles Auscultation: clear to auscultation bilaterally, no rales, no rhonchi and no wheezes Cardio Jugular venous pressure: no JVD Rate: regular rate Rhythm: regular rhythm GI Inspection: normal to inspection, no edema and non-distended Palpation: soft, no masses, nontender and No ascites Auscultation: normal bowel sounds Other: no R/R/G. good BS no distention. does not seem to be Skin General skin exam: no rashes or lesions noted Trauma: no lacerations or abrasions Neuro General: alert, oriented x3, oriented, gait normal, moves all extremities, no focal motor deficits and CN's II-XI intact bilaterally Cognition: normal cognition Speech: speech normal Gait: normal gait Motor: muscle tone normal throughout Extrem General: normal to inspection, full ROM and no clubbing, cyanosis or edema Psych Appearance: grossly normal and well kempt Mental Status: mental status grossly normal Speech and Movement: speech and movement normal Affect: normal affect Objective Objective Clinical Data: Vital Signs Temperature 36.5 C 01/31/19 23:15 Temperature Source Tympanic 01/31/19 23:15 Pulse 77 01/31/19 23:15 Pulse Rhythm Regular 02/01/19 02:29 Respiratory Rate 16 01/31/19 23:15 Respiratory Effort Non-Labored 02/01/19 02:29 Respiratory Depth Normal 02/01/19 02:29 Respiratory Pattern Normal 02/01/19 02:29 Blood Pressure 142/77 H 01/31/19 23:15 Pulse Oximetry 97 01/31/19 23:15 Oxygen Delivery Method Room Air 01/31/19 23:15 Oxygen Flow Rate 0 01/31/19 23:15 Pain Level 4 01/31/19 23:15 Intake & Output 01/31/19 01/31/19 02/01/19 11:59 23:59 11:59 Intake Total 1310 / 3440 2130 / 3440 1150 / 1150 Balance 1310 / 3440 2130 / 3440 1150 / 1150 Intake: IV 1310 / 2620 1310 / 2620 1150 / 1150 Oral 820 / 820 Other: Urine Color Pale Yellow Urine Appearance Clear Clear Clear Comment voids in toilet independently. per pt report. pt voiding ad kerline. Stool Characteristics Liquid Brown Voiding Methods Toilet Toilet Laboratory Results WBC 8.32 k/cumm (4.4-10.8) D 01/31/19 07:45 RBC 3.94 m/cumm (4.00-5.20) L 01/31/19 07:45 Hgb 11.7 g/dL (12.0-15.5) L 01/31/19 07:45 Hct 35.0 % (36.0-46.0) L 01/31/19 07:45 MCV 88.8 fL (80-95) 01/31/19 07:45 MCH 29.7 pg (27.0-33.0) 01/31/19 07:45 MCHC 33.4 g/dL (32.0-36.0) 01/31/19 07:45 RDW 12.4 % (11.7-14.6) 01/31/19 07:45 Plt Count 312 x1000/uL (130-400) 01/31/19 07:45 MPV 9.3 fL (8.0-11.0) 01/31/19 07:45 Immature Gran % 0.1 01/31/19 07:45 Neutrophils % 70.8 01/31/19 07:45 Lymphocytes % 21.3 01/31/19 07:45 Monocytes % 6.3 01/31/19 07:45 Eosinophils % 1.3 01/31/19 07:45 Basophils % 0.2 01/31/19 07:45 Absolute Neutrophils 5.89 k/cumm (1.2-6.7) 01/31/19 07:45 Absolute Lymphocytes 1.77 k/cumm (1.2-3.4) 01/31/19 07:45 Absolute Monocytes 0.52 k/cumm (0.11-0.7) 01/31/19 07:45 Absolute Eosinophils 0.11 k/cumm (0.0-0.7) 01/31/19 07:45 Absolute Basophils 0.02 k/cumm (0.0-0.2) 01/31/19 07:45 Sodium 143 mmol/L (136-145) 01/31/19 07:45 Potassium 4.0 mmol/L (3.5-5.1) D 01/31/19 07:45 Chloride 109 mmol/L (98-107) H 01/31/19 07:45 Carbon Dioxide 27.1 mmol/L (21.0-32.0) 01/31/19 07:45 Anion Gap 6.9 mmol/L (3-11) 01/31/19 07:45 BUN 9 mg/dL (7-18) D 01/31/19 07:45 Creatinine 0.81 mg/dL (0.55-1.02) 01/31/19 07:45 Estimated GFR/1.73 m2 >= 60.00 (mL/min/1.73m2) 01/31/19 07:45 Glucose 96 mg/dL (70-100) 01/31/19 07:45 Calcium 8.1 mg/dL (8.5-10.1) L 01/31/19 07:45 Magnesium 1.5 mg/dL (1.8-2.4) L 01/31/19 07:45 Total Bilirubin 0.6 mg/dL (0.2-1.0) 01/31/19 07:45 AST 14 U/L (15-37) L 01/31/19 07:45 ALT 20 U/L (14-59) 01/31/19 07:45 Alkaline Phosphatase 74 U/L (46-116) 01/31/19 07:45 Total Protein 6.5 g/dL (6.4-8.2) 01/31/19 07:45 Albumin 3.1 g/dL (3.4-5.0) L 01/31/19 07:45
[2019-02-01] MEDS: Pantoprazole 40 MG VIAL IVP (08:49)
[2019-02-01] MEDS: Venlafaxine 75 MG TAB PO ×2 (08:49→19:27)
[2019-02-01] MEDS: Normal Saline Flush 10 ML SYR IVP ×2 (08:50→19:27)
[2019-02-01] MEDS: CIPROFLOXACIN 400 MG/200 ML BAG 200 MG IVPB ×2 (08:50→19:28)
--- NOTE | 2019-02-01 10:56 | PDOC.CMPRO ---
- If Service Date Differs Date of service: 02/01/19 Time of Service: 10:56 Care Management Progress Note S/O: Osiris is sitting up in bed watching television when CM meets with her. She is pleasant and easily engages in conversation. She reports she is feeling better but continues to have abdomen pain and remains on a liquid diet. At her request, CM provides her with educational material related to diverticulitis. CM continues to follow. A: Osiris is a 53 year old female admitted to [facility] on 01/30/2019 for acute diverticulitis. P: Osiris will be discharged home when medically cleared by provider. Anticipate no new services needed at time of discharge. She will drive herself home when ready. CM continues to follow.
[2019-02-01 16:02] VITALS: BP 149/84; PULSE 76; RESP 18; TEMP 37.1; O2SAT 100
--- NOTE | 2019-02-01 16:22 | W.PM.PROGNOT ---
Date of Service Date of service: 02/01/19 Time of Service: 16:23 Assessment and Plan Assessment and plan (1) Acute diverticulitis: Status: Acute Assessment and plan: A\\ 53 year old with second bout of diverticulitis. Feeling better this afternoon. P\\ Start Lactobacillus Saline lock IV Continue Antibiotics Advance diet to low fiber If doing well tomorrow will D/C to home on po antibiotics and probiotics Subjective Subjective Interval history since last seen: Mrs. Wooten is doing well. Her pain is much better. She now only has pain when she moves. Her diarrhea has stopped. Exam Const General: cooperative and comfortable Orientation: alert and oriented x3 GI Inspection: normal to inspection Palpation: soft and no hepatosplenomegaly Auscultation: normal bowel sounds Objective Objective Clinical Data: Vital Signs Temperature 98.8 F 02/01/19 16:02 Temperature Source Tympanic 02/01/19 16:02 Pulse 76 02/01/19 16:02 Pulse Rhythm Regular 02/01/19 15:29 Respiratory Rate 18 02/01/19 16:02 Respiratory Effort 02/01/19 15:29 Respiratory Depth Normal 02/01/19 15:29 Respiratory Pattern Normal 02/01/19 15:29 Blood Pressure 149/84 H 02/01/19 16:02 Pulse Oximetry 100 02/01/19 16:02 Oxygen Delivery Method Room Air 02/01/19 16:02 Oxygen Flow Rate 0 02/01/19 16:02 Pain Level 0 02/01/19 16:02 Intake & Output 01/31/19 02/01/19 02/01/19 23:59 11:59 23:59 Intake Total 2130 / 3440 2250 / 2960 710 / 2960 Balance 2130 / 3440 2250 / 2960 710 / 2960 Intake: IV 1310 / 2620 2250 / 2250 Oral 820 / 820 710 / 710 Other: Urine Appearance Clear Clear Comment per pt report. pt voiding ad kerline. Stool Characteristics Liquid Brown Voiding Methods Toilet Toilet Laboratory Results WBC 8.32 k/cumm (4.4-10.8) D 01/31/19 07:45 RBC 3.94 m/cumm (4.00-5.20) L 01/31/19 07:45 Hgb 11.7 g/dL (12.0-15.5) L 01/31/19 07:45 Hct 35.0 % (36.0-46.0) L 01/31/19 07:45 MCV 88.8 fL (80-95) 01/31/19 07:45 MCH 29.7 pg (27.0-33.0) 01/31/19 07:45 MCHC 33.4 g/dL (32.0-36.0) 01/31/19 07:45 RDW 12.4 % (11.7-14.6) 01/31/19 07:45 Plt Count 312 x1000/uL (130-400) 01/31/19 07:45 MPV 9.3 fL (8.0-11.0) 01/31/19 07:45 Immature Gran % 0.1 01/31/19 07:45 Neutrophils % 70.8 01/31/19 07:45 Lymphocytes % 21.3 01/31/19 07:45 Monocytes % 6.3 01/31/19 07:45 Eosinophils % 1.3 01/31/19 07:45 Basophils % 0.2 01/31/19 07:45 Absolute Neutrophils 5.89 k/cumm (1.2-6.7) 01/31/19 07:45 Absolute Lymphocytes 1.77 k/cumm (1.2-3.4) 01/31/19 07:45 Absolute Monocytes 0.52 k/cumm (0.11-0.7) 01/31/19 07:45 Absolute Eosinophils 0.11 k/cumm (0.0-0.7) 01/31/19 07:45 Absolute Basophils 0.02 k/cumm (0.0-0.2) 01/31/19 07:45 Sodium 143 mmol/L (136-145) 01/31/19 07:45 Potassium 4.0 mmol/L (3.5-5.1) D 01/31/19 07:45 Chloride 109 mmol/L (98-107) H 01/31/19 07:45 Carbon Dioxide 27.1 mmol/L (21.0-32.0) 01/31/19 07:45 Anion Gap 6.9 mmol/L (3-11) 01/31/19 07:45 BUN 9 mg/dL (7-18) D 01/31/19 07:45 Creatinine 0.81 mg/dL (0.55-1.02) 01/31/19 07:45 Estimated GFR/1.73 m2 >= 60.00 (mL/min/1.73m2) 01/31/19 07:45 Glucose 96 mg/dL (70-100) 01/31/19 07:45 Calcium 8.1 mg/dL (8.5-10.1) L 01/31/19 07:45 Magnesium 1.5 mg/dL (1.8-2.4) L 01/31/19 07:45 Total Bilirubin 0.6 mg/dL (0.2-1.0) 01/31/19 07:45 AST 14 U/L (15-37) L 01/31/19 07:45 ALT 20 U/L (14-59) 01/31/19 07:45 Alkaline Phosphatase 74 U/L (46-116) 01/31/19 07:45 Total Protein 6.5 g/dL (6.4-8.2) 01/31/19 07:45 Albumin 3.1 g/dL (3.4-5.0) L 01/31/19 07:45
[2019-02-01] MEDS: Enoxaparin 40 MG/0.4 ML SYR SC (19:27)
[2019-02-01 19:36] VITALS: BP 136/85; PULSE 74; RESP 16; TEMP 37.2; O2SAT 100
[2019-02-02 00:04] VITALS: BP 127/70; PULSE 85; RESP 17; TEMP 36.7; O2SAT 96
[2019-02-02] MEDS: Normal Saline Flush 10 ML SYR IVP ×2 (06:20→07:58)
[2019-02-02] MEDS: metroNIDAZOLE 500 MG/100 ML BAG 100 MG IVPB (06:20)
[2019-02-02 07:22] LABS: Abs Immature Grans 0.02 k/cumm (0.0-0.09); Absolute Basophil Count 0.02 k/cumm (0.0-0.2); Absolute Eosinophil Count 0.18 k/cumm (0.0-0.7); Absolute Lymphocyte Count 2.08 k/cumm (1.2-3.4); Absolute Monocyte Count 0.53 k/cumm (0.11-0.7); Absolute Neutrophil Count 5.16 k/cumm (1.2-6.7); Basophils % 0.3; Eosinophils % 2.3; HCT 38.4 % (36.0-46.0); HGB 12.7 g/dL (12.0-15.5); Immature Grans % 0.3; Mean Corp. HGB Concentration 33.1 g/dL (32.0-36.0); Mean Corpuscular Hemoglobin 29.3 pg (27.0-33.0); Mean Corpuscular Volume 88.5 fL (80-95); Mean Platelet Volume 9.6 fL (8.0-11.0); Monocytes % 6.6; Neutrophils % 64.5; Platelet Count 359 x1000/uL (130-400); RBC 4.34 m/cumm (4.00-5.20); RBC Distribution Width 12.3 % (11.7-14.6); White Blood Cell Count 7.99 k/cumm (4.4-10.8)
[2019-02-02 07:30] VITALS: BP 165/90; PULSE 69; RESP 16; TEMP 36.6; O2SAT 100
[2019-02-02 07:33] LABS: Anion Gap 6.1 mmol/L (3-11); BUN 7 mg/dL (7-18); C-Reactive Protein 1.75 mg/dL (0.0-0.3); CO2 29.9 mmol/L (21.0-32.0); CREATININE 0.98 mg/dL (0.55-1.02); Calcium 8.9 mg/dL (8.5-10.1); Chloride 106 mmol/L (98-107); Estimated GFR 58.92 (mL/min/1.73m2); Glucose 101 mg/dL (70-100); Potassium 4.1 mmol/L (3.5-5.1); Sodium 142 mmol/L (136-145)
[2019-02-02] MEDS: Pantoprazole 40 MG VIAL IVP (07:58)
[2019-02-02] MEDS: Venlafaxine 75 MG TAB PO (07:58)
[2019-02-02] MEDS: CIPROFLOXACIN 400 MG/200 ML BAG 200 MG IVPB (07:58)
--- NOTE | 2019-02-02 10:36 | W.PM.DS.N ---
Date of service: 02/02/19 Time of Service: 10:40 DS: Diagnosis Discharge Diagnosis (1) Acute diverticulitis: Status: Acute Discharge Plan Disposition Patient Disposition: HOME Condition: Good Discharge Details Reason For Visit: ACUTE DIVERTICULITIS Admit Date/Time: 01/30/19 20:08 Admit Provider: Yessica Jones Attending Provider: Yessica Jones Primary Care [facility] Hospital Course: Mrs. Wooten went to see personnel on 01/30/19 regarding L sided abdomen pain since Monday. It started on left side and radiates into back. no fever/chills. no n/v. no appetite. + diarrhea. no blood. She had a CT today and results reviewed. She had a minor attack back in July- she was tx on outpt basis w/ PO abx. She was found to have a 7cm ovarian mass and had b/l SO. She has had no problems recovering from this. She was admitted for IV antibiotics and bowel rest. On POD #1 she continued with diarrhea and abdominal pain. Pain was improved so she was started on clear liquids. On 11/15 in the afternoon she started to feel a bit better. Her pain was minimal and her diarrhea had slowed down so her diet was advanced to low fiber. On 11 she was afebrile, pain was only with Movement and BM. She was only taking tylenol and Toradol as needed. Patient was discharged home on a low fiber diet, Tylenol or ibuprofen for pain antibiotics x 14 days total as well as probiotics. Home Meds and New Rx's Prescriptions: New acetaminophen [Tylenol] 325 mg Tablet 650 mg PO Q6H PRNQty: 30 RF: 0 acidophilus-pectin, citrus 25 million cell -100 mg Tablet 2 tab PO TID Qty: 90 RF: 0 metronidazole 500 mg tablet 500 mg PO TID Qty: 36 RF: 0 ciprofloxacin HCl 500 mg tablet 500 mg PO BID Qty: 24 RF: 0 ibuprofen 600 mg tablet 600 mg PO Q6H PRN (Reason: pain) Qty: 30 RF: 0 Continued multivitamin with minerals [Hair,Skin and Nails] tablet 3 tab PO DAILY RF: 0 venlafaxine 75 mg tablet 75 mg PO BID Qty: 180 RF: 3 Hair,Skin and Nails 1 mg iron-66.7 mcg-1,000 mcg Tablet 1 tab PO DAILY RF: 0 Discharge Instructions Instructions: Diverticulitis (GEN), Diverticulitis Diet (DC) Additional Instructions: Diet: Low fiber diet Activity: as tolerated Pain medication: Tylenol 650 mg every 6 hours as needed Ibuprofen 600 mg every 6 hours as needed Antibiotics: Ciprofloxacin 500 mg 2 x a day x 12 days Metronidazole 500 mg 3 x a day x 12 days Other: Probiotics- Over the counter medication. Please take as directed on the package for 30 days Please call or return to the ER if you develop: fevers >101.5 Nausea or Vomiting Worsening abdominal pain Referrals: Yessica Jones DO [OSTEOPATHIC DOCTOR] - 02/08/19 11:00 am Activity:: Activity as Tolerated Equipment/Supplies:: No Equipment Needed Diet:: low fiber diet Discharge Orders Discharge Orders: Discharge Order (Routine); Ordered 02/02/19 Ordered By: Mayela Tuttle DS: Summary Status at Discharge Functional status at discharge: independent ambulation Overall status at discharge: patient is back to baseline Mental Status: mental status grossly normal and other Speech and Movement: speech and movement normal Mood: congruent mood and other Affect: normal affect Exam Const General: cooperative, comfortable and no acute distress Orientation: alert and oriented x3 HENMT Head: normocephalic and atraumatic Eyes Pupils: PERRL Resp Effort & Inspection: normal respiratory effort Auscultation: clear to auscultation bilaterally Cardio Rate: regular rate Rhythm: regular rhythm Heart Sounds: no gallops, no murmurs and no rubs GI Inspection: normal to inspection Palpation: soft, no hepatosplenomegaly and tender (mild LLQ. No rebound or guarding) Auscultation: normal bowel sounds Extrem General: no clubbing, cyanosis or edema Psych Mental Status: mental status grossly normal and other Speech and Movement: speech and movement normal Mood: congruent mood and other Affect: normal affect DS: Data Vitals/I&O Vitals and I&O: Vital Signs Temperature 98.1 F 02/02/19 00:04 Temperature Source Tympanic 02/02/19 00:04 Pulse 85 02/02/19 00:04 Pulse Rhythm Regular 02/02/19 00:09 Respiratory Rate 17 02/02/19 00:04 Respiratory Effort Non-Labored 02/02/19 00:09 Respiratory Depth Normal 02/02/19 00:09 Respiratory Pattern Normal 02/02/19 00:09 Blood Pressure 127/70 02/02/19 00:04 Pulse Oximetry 96 02/02/19 00:04 Oxygen Delivery Method Room Air 02/02/19 00:04 Oxygen Flow Rate 0 02/02/19 00:04 Pain Level 0 02/01/19 19:36 Intake & Output 02/01/19 02/01/19 02/02/19 11:59 23:59 11:59 Intake Total 2250 / 4067.5 1817.5 / 4067.5 590 / 590 Balance 2250 / 4067.5 1817.5 / 4067.5 590 / 590 Intake: IV 2250 / 2907.5 657.5 / 2907.5 200 / 200 Oral 1160 / 1160 390 / 390 Other: Urine Appearance Clear Clear Stool Characteristics Liquid Brown Voiding Methods Toilet Toilet Data Completed and Pending Labs on day of discharge: Labs from last 24 hours 02/02/19 02/02/19 06:45 06:45 WBC 7.99 RBC 4.34 Hgb 12.7 Hct 38.4 MCV 88.5 MCH 29.3 MCHC 33.1 RDW 12.3 Plt Count 359 MPV 9.6 Immature Gran % 0.3 Neutrophils % 64.5 Lymphocytes % 26.0 Monocytes % 6.6 Eosinophils % 2.3 Basophils % 0.3 Absolute Neutrophils 5.16 Absolute Lymphocytes 2.08 Absolute Monocytes 0.53 Absolute Eosinophils 0.18 Absolute Basophils 0.02 Sodium 142 Potassium 4.1 Chloride 106 Carbon Dioxide 29.9 Anion Gap 6.1 BUN 7 Creatinine 0.98 Estimated GFR/1.73 m2 58.92 Glucose 101 H Calcium 8.9 Magnesium 2.0 C-Reactive Protein 1.75 H [facility] Medical History (Updated 02/02/19 @ 10:42 by Mayela Tuttle MD) Acute diverticulitis (Acute) Anxiety (Inactive) Foot pain, right (Inactive 09/08/17) Irritable colon (Inactive) Malignant melanoma of skin (Inactive) right leg; + Fam HX --[facility] genetic test Migraine (Inactive) Tubular adenoma (Inactive) 12/15/14; Dr. Tuttle Surgical History (Updated 02/02/19 @ 10:42 by Mayela Tuttle MD) Cholecystectomy (~2000) dental surgery History of bilateral oophorectomy (Inactive) melanoma excision (~02/2015) S/P colonoscopy (Acute) 11/2014-Tubular adenoma Family History Mother Substance abuse Essential hypertension Macular hole Heart disease Hyperlipidemia Father Substance abuse Essential hypertension Heart disease Hyperlipidemia Neoplasm SKIN Sister Hyperlipidemia Neoplasm SKIN Grandfather Essential hypertension Heart disease Hyperlipidemia Neoplasm pancreatic/liver Grandmother Diabetes Alzheimer disease Heart disease Son Essential hypertension Depression Daughter No problems noted. Social History Smoking/Tobacco Use Status: Never Alcohol Intake: never Drug use: Never Substance use type: does not use Do you feel safe at home: Yes Do you feel safe in your relationship?: Yes
--- NOTE | 2019-02-02 11:14 | PDOC.CMDIS ---
- If Service Date Differs Date of service: 02/02/19 Time of Service: 11:14 LACE Index Scoring Tool - Questions: Length of Stay (in days): 3 Acuity (Admit via E.D.?): No E.D. Visits: 4 - Answers: Total Score: 7 Risk of Readmission: Low Risk Care Management Discharge Reason for Hospitalization: Acute diverticulitis. Discharge Plan: Osiris is being discharged home. She will follow-up with her PCP and her plan of care as directed. Patient/Family Education Needs: Nursing will review discharge instructions with Osiris regarding activity level, diet, and medications. Osiris is able to verbalize reason for hospitalizaton and how to manage care at home.
== END 2019-02-02 12:49 | disposition home or self-care (01) | DRG 392 ==
PROVIDERS: Internal Medicine; Admitting Provider Surgery; PCP Family Medicine; Visit Provider Surgery
DX: K57.32 Diverticulitis of large intestine without perforation or abscess without bleeding (principal)
CPT/HCPCS: 36415; 80048; 80053; 99222; 99232; 99239; J1650; 83735; 85025; 86140; J0744; J3480

== ENCOUNTER 2019-03-28 11:46 | Day surgery (SDC) | payer OTHER, SELFPAY ==
--- NOTE | 2019-03-27 21:20 | W.PM.HP.N ---
Date of service: 03/28/19 Time of Service: 12:00 Assessment and Plan Assessment and plan (1) Tubular adenoma: Status: Acute Assessment and plan: last CE was 5yrs ago (2) Diverticula of colon: Status: Acute Assessment and plan: Risks: Informed consent is obtained for the procedural (explained in simple layman's terms that the pt and/or family could understand) explaining risks vs benefits and alternatives to the procedure and consequences if we do not do the procedure and need/rational for the procedure. Risks include but are not limited to: bleeding, infection, perforation of colon. This would necessitate emergency surgery to repair the damage w/ possible ostomy; and other associated complications w/ the required surgery. Also complications of anesthesia including aspiration, NH/CVA/. I discussed with the patient would they could expect during the procedure, post procedure and recovery time and risks. The patient understands that they need to have a ride home after the procedure. The patient was given all this information in writing and expressed understanding. History of Present Illness Consults Consult date: 03/28/19 Narrative: Pt has recently in the hospital for acute diverticulitis. She is here today for surveillance CE. She had a adenomatous polyp on her last CE. She also was in hosp for diverticulitis. Since that time she has had no problems- no pain or diarrhea. no fever/chills. No pain or blood in BM. Her BM have been very regular. No CP or SOB today. No URI type s/s. no changes in health status/meds/allergies. complete prep and no abdom pain today. stable for procedure. From D/C Summary Mrs. Wooten went to see personnel on 01/30/19 regarding L sided abdomen pain since Monday. It started on left side and radiates into back. no fever/chills. no n/v. no appetite. + diarrhea. no blood. She had a CT today and results reviewed. She had a minor attack back in July- she was tx on outpt basis w/ PO abx. She was found to have a 7cm ovarian mass and had b/l SO. She has had no problems recovering from this. She was admitted for IV antibiotics and bowel rest. On POD #1 she continued with diarrhea and abdominal pain. Pain was improved so she was started on clear liquids. On 11/15 in the afternoon she started to feel a bit better. Her pain was minimal and her diarrhea had slowed down so her diet was advanced to low fiber. On 02/02 she was afebrile, pain was only with Movement and BM. She was only taking tylenol and Toradol as needed. Patient was discharged home on a low fiber diet, Tylenol or ibuprofen for pain antibiotics x 14 days total as well as probiotics. Review of Systems All systems reviewed & are unremarkable except as noted in HPI and below PFSH Medical History Acute diverticulitis (Acute) Anxiety (Inactive) Foot pain, right (Inactive 09/08/17) Irritable colon (Inactive) Malignant melanoma of skin (Inactive) right leg; + Fam HX --[facility] genetic test Migraine (Inactive) Tubular adenoma (Acute) 12/15/14; Dr. Tuttle Surgical History Cholecystectomy (~2000) dental surgery History of bilateral oophorectomy (Inactive) melanoma excision (~02/2015) S/P colonoscopy (Acute) 11/2014-Tubular adenoma Family History Mother Substance abuse Essential hypertension Macular hole Heart disease Hyperlipidemia Father Substance abuse Essential hypertension Heart disease Hyperlipidemia Neoplasm SKIN Sister Hyperlipidemia Neoplasm SKIN Grandfather Essential hypertension Heart disease Hyperlipidemia Neoplasm pancreatic/liver Grandmother Diabetes Alzheimer disease Heart disease Son Essential hypertension Depression Daughter No problems noted. Social History Smoking/Tobacco Use Status: Never Alcohol Intake: never Drug use: Never Substance use type: does not use Do you feel safe at home: No Do you feel safe in your relationship?: No Meds Home Medications and Allergies Home Medications Medication Instructions Recorded Confirmed Type multivitamin with minerals 3 tab PO DAILY tab 06/12/18 03/28/19 History venlafaxine 75 mg tablet 75 mg PO BID #180 tab-cap 07/02/18 03/28/19 Rx Hair,Skin and Nails 1 tab PO DAILY 01/30/19 03/28/19 History acetaminophen [Tylenol] 650 mg PO Q6H PRN #30 tab 02/02/19 03/28/19 Rx acidophilus-pectin, citrus 2 tab PO TID #90 tab 02/02/19 03/28/19 Rx ibuprofen 600 mg PO Q6H PRN #30 tab 02/02/19 03/28/19 Rx ciprofloxacin HCl 500 mg tablet 500 mg PO BID #14 tab 02/25/19 03/28/19 Rx metronidazole 500 mg tablet 500 mg PO TID #21 tab 02/25/19 03/28/19 Rx Allergies Allergy/AdvReac Type Severity Reaction Status Date / Time citalopram AdvReac Intermediate skin hot, Unverified 03/26/19 16:37 Rash, headache
[2019-03-28 12:05] VITALS: BP 130/94; PULSE 96; RESP 16; TEMP 36.4; O2SAT 98
[2019-03-28] MEDS: Lactated Ringers 1,000 ML 120 ML IV (12:29)
--- NOTE | 2019-03-28 13:46 | W.COLOREPORT ---
Date of service: 03/28/19 Time of Service: 13:47 Colonoscopy Report Date of procedure: 03/28/19 Pre-op diagnosis general: diverticulitis/adenomatous polyps Post-op diagnosis procedure note: other (diverticula confined to sigmoid colon. very few but lg and deep. developing a narrowing/stricture at 30/40cm. ) Surgeon: Yessica Jones Anesthesia proc note operative: GETA Estimated blood loss (mL): 0 Pathology: none sent Disposition: same day Prep: Miralax/Dulcolax Retraction Time: 10 mins Procedure Description: After informed consent was obtained the patient was taken to the procedure room and placed in a left decubitous position. Monitors were applied and a time out was done. The patients name, date of , procedure, allergies to medications and metal in their body was reviewed. The patient was then sedated. Once sedated and comfortable a rectal exam was done. External exam was normal. Internal exam revealed a normal sphincter tone and no palpable masses. The scope was then introduced and retrofelexed. no internal hemorrhoids were identified. The scope was then advanced to the cecum without difficulty. The TI and appendiceal orifice were identified. The prep was adequate. The scope was then slowly retracted over 12 minutes back into the rectum. no signs of active infection. Polyps were removed at no. The scope was removed and the patient was woken up and taken back to Same day surgery in stable condition. The patient tolerated the procedure well and there were no immediate complications. Follow up: The patient should follow up in 10 years unless they develop changes in bowel habits or other new gastrointestinal complaints.
--- NOTE | 2019-03-28 13:57 | W.PM.DSUDISC ---
Discharge Plan Disposition Patient Disposition: HOME Condition: Good Discharge Details Reason For Visit: colon scope Attending Provider: Yessica Jones Primary Care Provider: Danny Davies Home Meds and New Rx's Prescriptions: No Action multivitamin with minerals [Hair,Skin and Nails] tablet 3 tab PO DAILY RF: 0 venlafaxine 75 mg tablet 75 mg PO BID Qty: 180 RF: 3 ciprofloxacin HCl 500 mg tablet 500 mg PO BID Qty: 14 RF: 0 metronidazole 500 mg tablet 500 mg PO TID Qty: 21 RF: 0 Hair,Skin and Nails 1 mg iron-66.7 mcg-1,000 mcg Tablet 1 tab PO DAILY RF: 0 acetaminophen [Tylenol] 325 mg Tablet 650 mg PO Q6H PRNQty: 30 RF: 0 acidophilus-pectin, citrus 25 million cell -100 mg Tablet 2 tab PO TID Qty: 90 RF: 0 ibuprofen 600 mg tablet 600 mg PO Q6H PRN (Reason: pain) Qty: 30 RF: 0 Discharge Instructions Instructions: Diverticulosis (GEN), Diverticulosis Diet (GEN), High Fiber Diet (GEN) Additional Instructions: Findings:diverticula- few but lg. confined to the sigmoid colon no active infection. no polyps defn developing more narrow than usual. Monitor for signs of increasing difficulty having BM. Stay on a very high fiber diet. Follow up:repeat CE in 10 yrs time. F/u w/ general surgery in 6m time. Please call if you develop: fevers >101.5 Nausea or Vomiting Abdominal pain that is not transient DAY SURGERY UNIT POST COLONOSCOPY INSTRUCTIONS 1. Because there will be medication in your system for the next 24 hours, you may feel a little sleepy. Your coordination will be affected. Therefore: a. Do not drive or operate dangerous equipment for 24 hours. b. Do not drink alcohol beverages for 24 hours (not even beer). c. Plan to go home and rest for the day. 2. Generally there are no restrictions on your activity after a day or so has gone by, but you may feel a bit fatigued for a few days. 3 After you arrive home you may have a light meal and return to a normal diet as you can tolerate it without feeling sick to your stomach. 4. After surgery, you may feel pain or discomfort. This should be only transient, but if it persists please contact your doctor. 5. If there are any questions regarding the findings of your procedure, please feel free to contact your doctor. 6. If you are unable to contact your doctor with a problem, contact the hospital at [phone]. 7. Continue all your regular medications unless directed otherwise. I understand the above instructions and have no questions. Signature of Patient or Responsible Adult Escort Date/Time Name of Responsible Adult Escort Signature of Nurse Date/Time Stand Alone Forms: Colonoscopy Post Instructions, Rc Howell (DSU) Activity:: No strenuous activity, no lifting over 20 pounds, no driving x24 hours Diet:: Small light meals x24 hours Discharge Orders Discharge Orders: Discharge Order (Routine); Ordered 03/28/19 Ordered By: Yessica Jones DS: Diagnosis Discharge Diagnosis (1) Tubular adenoma: Status: Acute (2) Diverticula of colon: Status: Acute
[2019-03-28 14:11] VITALS: BP 127/75; PULSE 67; RESP 16; TEMP 36.4; O2SAT 100
== END 2019-03-28 15:30 | disposition home or self-care (01) ==
PROVIDERS: PCP Family Medicine; Visit Provider Surgery
PROC: 0DJD8ZZ Inspection of Lower Intestinal Tract, Via Natural or Artificial Opening Endoscopic (ICD-10-PCS; CPT 45378; principal; 2019-03-28 13:00)
DX: Z12.11 Encounter for screening for malignant neoplasm of colon (principal); K57.30 Diverticulosis of large intestine without perforation or abscess without bleeding; K56.699 Other intestinal obstruction unspecified as to partial versus complete obstruction
CPT/HCPCS: 45378; NC

== ENCOUNTER 2019-09-18 12:25 | Outpatient (REF) | payer OTHER, SELFPAY ==
[2019-09-18 12:20] LABS: Abs Immature Grans 0.02 k/cumm (0.0-0.09); Absolute Basophil Count 0.02 k/cumm (0.0-0.2); Absolute Eosinophil Count 0.15 k/cumm (0.0-0.7); Absolute Lymphocyte Count 2.58 k/cumm (1.2-3.4); Absolute Monocyte Count 0.36 k/cumm (0.11-0.7); Absolute Neutrophil Count 3.76 k/cumm (1.2-6.7); Basophils % 0.3; Eosinophils % 2.2; HCT 38.5 % (36.0-46.0); HGB 13.1 g/dL (12.0-15.5); Immature Grans % 0.3 %; Lymphocytes % 37.4; Mean Corpuscular Hemoglobin 29.4 pg (27.0-33.0); Mean Corpuscular Volume 86.5 fL (80-95); Mean Platelet Volume 9.5 fL (8.0-11.0); Monocytes % 5.2; Neutrophils % 54.6; Platelet Count 402 x1000/uL (130-400); RBC 4.45 m/cumm (4.00-5.20); RBC Distribution Width 12.4 % (11.7-14.6); White Blood Cell Count 6.89 k/cumm (4.4-10.8)
[2019-09-18 14:18] LABS: C-Reactive Protein 0.22 mg/dL (0.0-0.3)
== END 2019-09-18 12:45 ==
LOC: LBN 12:25
PROVIDERS: PCP Family Medicine; Visit Provider Surgery
DX: R10.9 Unspecified abdominal pain (principal); K57.92 Diverticulitis of intestine, part unspecified, without perforation or abscess without bleeding; D36.9 Benign neoplasm, unspecified site; K57.30 Diverticulosis of large intestine without perforation or abscess without bleeding
CPT/HCPCS: 86141; 85025; 86140

== ENCOUNTER 2019-09-25 14:12 | Observation (INO) | payer OTHER, SELFPAY ==
[2019-09-25 14:40] VITALS: BP 146/98; PULSE 93; RESP 18; TEMP 36.5; O2SAT 100
[2019-09-25 14:41] VITALS: BP 146/98; PULSE 93; RESP 18; TEMP 36.5; O2SAT 100
[2019-09-25 15:22] LABS: Abs Immature Grans 0.02 k/cumm (0.0-0.09); Absolute Basophil Count 0.03 k/cumm (0.0-0.2); Absolute Monocyte Count 0.92 k/cumm (0.11-0.7); Absolute Neutrophil Count 6.24 k/cumm (1.2-6.7); Basophils % 0.3; HCT 40.2 % (36.0-46.0); HGB 13.8 g/dL (12.0-15.5); Immature Grans % 0.2 %; Mean Corp. HGB Concentration 34.3 g/dL (32.0-36.0); Mean Corpuscular Hemoglobin 29.7 pg (27.0-33.0); Mean Corpuscular Volume 86.6 fL (80-95); Mean Platelet Volume 9.3 fL (8.0-11.0); Monocytes % 9.2; Neutrophils % 62.3; Platelet Count 391 x1000/uL (130-400); RBC 4.64 m/cumm (4.00-5.20); RBC Distribution Width 12.5 % (11.7-14.6); White Blood Cell Count 10.01 k/cumm (4.4-10.8)
[2019-09-25] MEDS: CIPROFLOXACIN 400 MG/200 ML BAG 200 MG IVPB (15:22)
[2019-09-25 15:34] LABS: Lipase 136 U/L (73-393)
[2019-09-25 15:38] LABS: ALT 26 U/L (14-59); AST 19 U/L (15-37); Albumin 3.8 g/dL (3.4-5.0); Alkaline Phosphatase 64 U/L (46-116); Anion Gap 10.4 mmol/L (3-11); BUN 16 mg/dL (7-18); Bilirubin, Total 0.3 mg/dL (0.2-1.0); C-Reactive Protein 1.18 mg/dL (0.0-0.3); CO2 26.6 mmol/L (21.0-32.0); CREATININE 1.09 mg/dL (0.55-1.02); Calcium 10.2 mg/dL (8.5-10.1); Chloride 101 mmol/L (98-107); Estimated GFR 52.11 (mL/min/1.73m2); Glucose 113 mg/dL (74-106); Potassium 3.9 mmol/L (3.5-5.1); Sodium 138 mmol/L (136-145); Total Protein 7.6 g/dL (6.4-8.2)
[2019-09-25] MEDS: Breeza Beverage 473 ML BTL PO (15:38)
[2019-09-25] MEDS: Omnipaque 350 MG/ML 50 ML BTL IJ (15:38)
--- NOTE | 2019-09-25 16:19 | HPE_ITS ---
Date of service: 09/25/19 Time of Service: 16:19 Assessment and Plan Assessment and plan (1) Abdominal pain: Status: Acute (2) Diverticula of colon: Status: Acute (3) Acute diverticulitis: Status: Acute Assessment and plan: Will start her on IV antibiotics. She did not improve on oral Flagyl and Cipro and still has the same signs. She still having diarrhea and cramping and does not feel any better. We will obtain CT scanning. Further recommendations to follow based on results of this testing. We will repeat labs and UA Continue symptomatic and supportive care in prophylactic measures History of Present Illness Consults Consult date: 09/25/19 Narrative: She is well-known to me. She had a smoldering subclinical diverticulitis for which she finally had to be hospitalized in 01/2019. She had a colonoscopy in March. It did show no infections. But she definitely has a lot of scar tissue in the colon and is starting to develop a small stricture in the sigmoid colon from repeat episodes of diverticular disease. She is actually been feeling unwell for the last 2-1/2 weeks. We did a weeks worth of Cipro and Flagyl and she still does not feel good. She is having intermittent diarrhea. And she is having right-sided abdominal that radiates to the suprapubic left side. No appetite. Nausea. She feels chills. This was her second presentation in January. At this point I think it is worthwhile to her in the hospitalist for 24 hours for IV antibiotics and echo CT scan. She does not appear septic at this time. But she is not improved She has no peritonitis. She is not traveled out of state. She has no cough or shortness of breath. She has no loss of taste or smell. She has not been exposed to [place] that she is aware of Review of Systems All systems reviewed & are unremarkable except as noted in HPI and below Constitutional Constitutional: Reports as per HPI, Reports system reviewed and no additional complaints, except as documented, Denies anorexia, Denies chills, Denies difficulty sleeping, Denies fatigue, Denies headache(s), Denies lethargy, Denies malaise, Denies poor appetite, Denies weakness, Denies weight gain and Denies weight loss Eyes Eyes: Reports as per HPI, Reports system reviewed and no additional complaints, except as documented and Denies change in vision ENT Ears, Nose, Mouth, and Throat: Reports system reviewed and no additional complaints, except as documented, Reports as per HPI, Denies change in voice, Denies dental pain, Denies dysphagia, Denies dizziness, Denies facial pain, Denies headache(s) and Denies odynophagia Cardiovascular Cardiovascular: Reports as per HPI, Reports system reviewed and no additional complaints, except as documented, Denies chest pain, Denies chest pain with activity, Denies syncope, Denies leg edema and Denies dyspnea Respiratory Respiratory: Reports as per HPI, Reports system reviewed and no additional complaints, except as documented, Denies chest congestion, Denies cough, Denies pain with cough and Denies dyspnea Gastrointestinal Gastrointestinal: Reports as per HPI, Reports system reviewed and no additional complaints, except as documented, Reports abdominal pain (RLQ radiating into back and suprpubic region. ), Denies bloating, Denies change in bowel habits, Reports change in stool character, Denies constipation, Reports cramping, Denies dysphagia, Denies early satiety, Denies heartburn, Reports diarrhea, Reports loose stools, Reports nausea, Denies odynophagia and Denies vomiting Musculoskeletal Musculoskeletal: Reports system reviewed and no additional complaints, except as documented, Reports as per HPI, Denies abnormal gait, Denies arthralgias and Denies muscle weakness Integumentary/Breasts Skin/Breast: Reports system reviewed and no additional complaints, except as documented, Reports as per HPI, Denies changing lesions, Denies new lesions and Denies jaundice Neurologic Neurologic: Reports system reviewed and no additional complaints, except as documented, Reports as per HPI, Denies abnormal speech, Denies abnormal gait, Denies dizziness, Denies syncope, Denies headache(s), Denies memory loss and Denies weakness Psychiatric Psychiatric: Reports system reviewed and no additional complaints, except as documented, Reports as per HPI, Denies change in appetite and Denies memory loss Endocrine Endocrine: Denies fatigue, Denies polydipsia and Denies polyuria Hematologic/Lymphatic Hematologic/Lymphatic: Reports system reviewed and no additional complaints, except as documented, Denies easy bleeding and Denies easy bruising Allergic/Immunologic Allergic/Immunologic: Denies system reviewed and no additional complaints, except as documented, Reports as per HPI and Denies urticaria FORMERLY [facility], 1928–1983 Medical History (Updated 07/01/20 @ 12:42 by Yessica Jones DO) Abdominal pain (Acute) Acute diverticulitis (Acute) Anxiety (Inactive) Diverticula of colon (Acute) Foot pain, right (Inactive 09/08/17) Irritable colon (Inactive) Malignant melanoma of skin (Inactive) right leg; + Fam HX --FA[facility] genetic test Migraine (Inactive) Tubular adenoma (Acute) 12/15/14; Dr. Tuttle Surgical History Cholecystectomy (~2000) dental surgery History of bilateral oophorectomy (Inactive) melanoma excision (~02/2015) S/P colonoscopy (Acute) 11/2014-Tubular adenoma Social History Smoking/Tobacco Use Status: Never Alcohol Intake: never Drug use: Never Substance use type: does not use Do you feel safe at home: Yes Do you feel safe in your relationship?: Yes Meds Home Medications and Allergies Home Medications Medication Instructions Recorded Confirmed Type Hair,Skin and Nails 1 tab PO DAILY 01/30/19 09/25/19 History acetaminophen [Tylenol] 650 mg PO Q6H PRN #30 tab 02/02/19 09/25/19 Rx ibuprofen 600 mg PO Q6H PRN #30 tab 02/02/19 09/25/19 Rx venlafaxine 75 mg tablet 75 mg PO BID #180 tab-cap 07/01/19 09/25/19 Rx psyllium husk 3.4 gram/5.4 gram 2 tbs PO DAILY gm 08/28/19 09/25/19 History oral powder Allergies Allergy/AdvReac Type Severity Reaction Status Date / Time citalopram AdvReac Intermediate skin hot, Verified 09/25/19 13:16 Rash, headache Exam Const General: cooperative, healthy appearing, comfortable, no acute distress, well developed and well groomed Nutritional Appearance: average body habitus and well nourished Orientation: alert, awake and oriented x3 HENMT Head: normal to inspection, normocephalic and atraumatic Ears: hearing grossly normal bilaterally and external ears normal General nose exam: external nose normal Face and sinus: normal facial exam and sinuses nontender Mouth: oral mucosae normal, lip normal, tongue normal and moist mucous membranes Teeth and gingiva: dentition normal Eyes General: appearance normal, both eyes and all related structures Conjunctivae: conjunctivae normal Sclera: sclerae normal Pupils: PERRL Neck Neck: normal visual inspection and full ROM Chest Chest: normal inspection of the chest Resp Effort & Inspection: normal respiratory effort, able to speak in complete sentences, no cough, no nasal flaring, not tachypneic and no use of accessory muscles Auscultation: clear to auscultation bilaterally, no rales, no rhonchi and no wheezes Cardio Jugular venous pressure: no JVD Rate: regular rate Rhythm: regular rhythm GI Inspection: normal to inspection, no edema and non-distended Palpation: soft, not firm, no masses, tender (radiating into back and suprpubic position.) in the RLQ and No ascites Auscultation: normal bowel sounds Skin General skin exam: no rashes or lesions noted Trauma: no lacerations or abrasions Neuro General: patient alert, patient oriented x3, oriented, gait normal, moves all extremities, no focal motor deficits and CN's II-XI intact bilaterally Cognition: normal cognition Speech: speech normal Gait: normal gait Motor: muscle tone normal throughout Extrem General: normal to inspection, full ROM and no clubbing, cyanosis or edema Psych Appearance: grossly normal and well kempt Mental Status: mental status grossly normal Speech and Movement: speech and movement normal Affect: normal affect Results Labs Result diagrams: 09/25/19 15:00 09/25/19 15:18 Labs: Laboratory Results - last 24 hr 09/25/19 09/25/19 09/25/19 15:00 15:00 15:00 WBC 10.01 RBC 4.64 Hgb 13.8 Hct 40.2 MCV 86.6 MCH 29.7 MCHC 34.3 RDW 12.5 Plt Count 391 MPV 9.3 Immature Gran % 0.2 Neutrophils % 62.3 Lymphocytes % 26.0 Monocytes % 9.2 Eosinophils % 2.0 Basophils % 0.3 Absolute Neutrophils 6.24 Absolute Lymphocytes 2.60 Absolute Monocytes 0.92 H Absolute Eosinophils 0.20 Absolute Basophils 0.03 Sodium 138 Potassium 3.9 Chloride 101 Carbon Dioxide 26.6 Anion Gap 10.4 BUN 16 Creatinine 1.09 H Estimated GFR/1.73 m2 52.11 Glucose 113 H Calcium 10.2 H Total Bilirubin 0.3 AST 19 ALT 26 Alkaline Phosphatase 64 C-Reactive Protein 1.18 H Total Protein 7.6 Albumin 3.8 Lipase 136 09/25/19 15:18 WBC RBC Hgb Hct MCV MCH MCHC RDW Plt Count MPV Immature Gran % Neutrophils % Lymphocytes % Monocytes % Eosinophils % Basophils % Absolute Neutrophils Absolute Lymphocytes Absolute Monocytes Absolute Eosinophils Absolute Basophils Sodium Cancelled Potassium Cancelled Chloride Cancelled Carbon Dioxide Cancelled Anion Gap Cancelled BUN Cancelled Creatinine Cancelled Estimated GFR/1.73 m2 Cancelled Glucose Cancelled Calcium Cancelled Total Bilirubin Cancelled AST Cancelled ALT Cancelled Alkaline Phosphatase Cancelled C-Reactive Protein Total Protein Cancelled Albumin Cancelled Lipase Last Vital Signs Temp 36.5 C 09/25/19 14:41 Pulse 93 H 09/25/19 14:41 Resp 18 09/25/19 14:41 BP 146/98 H 09/25/19 14:41 Pulse Ox 100 09/25/19 14:41 COVID-19 Screening Have you,or anyone in your household, traveled outside of [place] in the last 14 days?: NO Had IN PERSON contact w/suspected or confirmed C-19 person: No
[2019-09-25] MEDS: Omnipaque 350 MG/ML 100 ML BTL IJ (16:46)
[2019-09-25] MEDS: Normal Saline 20 ML VIAL IJ ×2 (16:47→16:48)
[2019-09-25] MEDS: Normal Saline Flush 10 ML SYR IVP (16:48)
--- NOTE | 2019-09-25 16:50 | DI.CT_ITS ---
EXAM: CT ABDOMEN PELVIS W TECHNIQUE: Imaging Protocol: Axial computed tomography images with coronal and sagittal reformatted images were created and reviewed CONTRAST MATERIAL: Intravenous: Omnipaque 350 Contrast volume: 100 cc Oral: no COMPARISON: CT CT ABDOMEN PELVIS W from 01/30/2019 FINDINGS: The lung bases are clear. Liver cysts are again noted. Patient is status post cholecystectomy. Th ere is no biliary dilatation. The pancreas, spleen, kidneys and adrenals are unremarkable. Divertic ulosis is noted in the lower descending and sigmoid colon. There is no evidence of diverticulitis. The appendix is normal. The uterus is retroverted and unremarkable. No adnexal masses or free fluid is present. Degenerative disc changes are seen at L5-S1. The aorta is normal in diameter. IMPRESSION: No acute abnormality. RADIATION DOSE DELIVERED: Total DLP Total DLP DATA REPOSITORY: All CT scans at this facility are submitted to the National Radiology Data Registry (NRDR) Dose Index Registry (DIR) with the [employer] (ACR). RADIATION OPTIMIZATION: All CT scans at this facility use at least one of these dose optimization te chniques: automated exposure control; mA and/or kV adjustment per patient size (includes targeted exa ms where dose is matched to clinical indication); or iterative reconstruction.
[2019-09-25 16:59] VITALS: BP 159/90; PULSE 78; RESP 20; TEMP 36.6; O2SAT 99
--- NOTE | 2019-09-25 17:08 | DI.VRAD_ITS ---
PROCEDURE INFORMATION: Exam: CT Abdomen And Pelvis With Contrast Exam date and time: 09/25/2019 2:19 PM Age: 53 years old Clinical indication: Other: Diverticulitis TECHNIQUE: Imaging protocol: Computed tomography of the abdomen and pelvis with intravenous contrast. Radiation optimization: All CT scans at this facility use at least one of these dose optimization techniques: automated exposure control; mA and/or kV adjustment per patient size (includes targeted exams where dose is matched to clinical indication); or iterative reconstruction. Contrast material: OMNIPAQUE 350; Contrast volume: 100 ml; Contrast route: INTRAVENOUS (IV); Other contrast: Oral, Omnipaque 350/Water, 920; COMPARISON: CT ABDOMEN PELVIS W 01/30/2019 4:02 PM FINDINGS: Lungs: The visualized portions of the lung bases demonstrate no acute disease. Liver: Multifocal hepatic cysts are appreciated, the largest in the left hepatic lobe measuring 3.5 cm. These cysts are essentially stable and of no clinical concern. No acute liver pathology is otherwise noted. No concerning liver lesions are seen. Gallbladder and bile ducts: Prior cholecystectomy. No significant biliary ductal dilation. Pancreas: Normal. No ductal dilation. Spleen: Normal. No splenomegaly. Adrenals: Normal. No mass. Kidneys and ureters: Normal. No hydronephrosis. Stomach and bowel: No bowel wall thickening, obstruction, or other acute pathology. Diffuse colonic diverticulosis is present. Appendix: No evidence of appendicitis. Intraperitoneal space: Unremarkable. No free air. No significant fluid collection. Vasculature: The vasculature demonstrates diffuse mild atherosclerotic calcification. Lymph nodes: Unremarkable. No enlarged lymph nodes. Bladder: Unremarkable as visualized. Reproductive: Unremarkable as visualized. Bones/joints: No acute abnormality or aggressive osseous lesion. Soft tissues: Unremarkable. IMPRESSION: Negative for acute abdominopelvic pathology. Specifically, there is no evidence of acute diverticulitis. Dictated and Authenticated by: Candido Oscar MD. Ordering:NHI Juan MD
[2019-09-25] MEDS: metroNIDAZOLE 500 MG/100 ML BAG 100 MG IVPB (17:11)
[2019-09-25 19:20] LABS: Cholesterol 244 mg/dL (<200); HDL Cholesterol 40 mg/dL (40-60); Triglyceride 422 mg/dL (<150)
[2019-09-25 19:39] LABS: LDL CHOLESTEROL 131 mg/dL (<100)
[2019-09-25] MEDS: Venlafaxine 75 MG TAB PO (20:56)
[2019-09-25 21:10] LABS: Bilirubin Negative (Negative); Blood Negative (Negative); Clarity Clear (Clear); Glucose Negative (Negative); Ketones Negative (Negative); Leukocyte Esterase Negative (Negative); Nitrite Negative (Negative); Urobilinogen 0.2 EU/dL (Up TO 0.2); pH 5.5 (5-8)
[2019-09-26 00:03] VITALS: BP 148/89; PULSE 79; RESP 18; TEMP 36; O2SAT 98
[2019-09-26 03:45] VITALS: BP 121/54; PULSE 86; RESP 18; TEMP 36.6; O2SAT 99
[2019-09-26] MEDS: Venlafaxine 75 MG TAB PO (08:22)
[2019-09-26 08:49] VITALS: BP 122/84; RESP 14; TEMP 36.6; O2SAT 99
--- NOTE | 2019-09-26 08:50 | PDOC.CMIN ---
- If Service Date Differs Date of service: 09/26/19 Time of Service: 08:50 Care Management Initial Assess REASON FOR HOSPITALIZATION:: Abdominal pain PAST MEDICAL HISTORY/PAST SURGICAL HISTORY:: Medical History (Updated 09/18/19 @ 12:42 by Yessica Jones DO). Abdominal pain (Acute). Acute diverticulitis (Acute). Anxiety (Inactive). Diverticula of colon (Acute). Foot pain, right (Inactive 09/08/17). Irritable colon (Inactive). Malignant melanoma of skin (Inactive). right leg; + Fam HX --FAHC genetic test. Migraine (Inactive). Tubular adenoma (Acute). 12/15/14; Dr. Tuttle. Surgical History . Cholecystectomy (~2000). dental surgery. History of bilateral oophorectomy (Inactive). melanoma excision (~02/2015). S/P colonoscopy (Acute). 11/2014-Tubular adenoma PREVIOUS FUNCTIONAL STATUS/SOCIAL/FAMILY SUPPORTS:: Osiris lives alone in an apartment in [place]. She is recently and has 2 children from whom she is estranged. 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 She names her boyfriend and sister as family supports. Osiris is independent in the community and does not receive any services. CURRENT FUNCTIONAL STATUS:: Osiris was sitting up in a chair when CM met with her. She shared some of the details of her recent divorce and the effect it has had on her relationship with her children. She is also having financial challenges as her is 2 months behind with alimony payments. Some of these difficulties are related to the Covid pandemic and changes in employment, hours etc. ADVANCE DIRECTIVES:: None on file Has patient been provided with info about the portal/API?: Yes Did the patient sign up for the portal?: No (no internet) CODE STATUS:: Full Code INSURANCE COVERAGE / FINANCIAL ISSUES:: GISC/[employer] CURRENT HOME/COMMUNITY SERVICES/EQUIPMENT:: none currently PRIMARY CARE PHYSICIAN:: Danny Arce MD POTENTIAL DISCHARGE NEEDS:: Follow up with PCP and discharge plan of care PATIENT/FAMILY EDUCATION NEEDS:: Discharge plan, limitations, follow up plan, Ask Me Three TRANSPORTATION:: via private vehicle with friend or family PLAN:: Osiris will likely be discharged home with no new services. She will follow up with her surgeon and discharge plan of care. Osiris will transport via private vehicle with her sister or boyfriend. CM will continue to support patient, family and discharge planning needs.
--- NOTE | 2019-09-26 09:38 | W.PM.PROGNOT ---
Date of Service Date of service: 09/26/19 Time of Service: 09:38 Assessment and Plan Assessment and plan (1) RLQ abdominal pain: Status: Acute Assessment and plan: labs nl no etiology for pain (2) Chronic low back pain with right-sided sciatica: Status: Acute Assessment and plan: Will have PT eval pt and see if there is any musculoskeletal etiology for the pain. Subjective Subjective Interval history since last seen: Pt is not feeling any better today on IV sabx. She is still having R sided abodminal pain. Mild diarrhea- no blood. This is the same. able to tolerate liquids. pt said she has had her ovarias out in 2019, b/c her L ovary was 7cm. CT reviewed says they are normal. Her appendix is nl. no SBO. no diverticulitis. Exam GI Palpation: soft, no hernias, no masses and tender in the RLQ; with no rebound tenderness Auscultation: normal bowel sounds Objective Objective Clinical Data: Abnormal lab results 09/25/19 09/25/19 09/25/19 Range/Units 15:00 15:00 15:18 Absolute Monocytes 0.92 H (0.11-0.7) k/cumm Creatinine 1.09 H (0.55-1.02) mg/dL Glucose 113 H (74-106) mg/dL Calcium 10.2 H (8.5-10.1) mg/dL C-Reactive Protein 1.18 H (0.0-0.3) mg/dL Triglycerides 422 H (<150) mg/dL Total Cholesterol 244 H (<200) mg/dL LDL Cholesterol Direct 131 H (<100) mg/dL Vital Signs Temperature 36.6 C 09/26/19 08:49 Temperature Source Tympanic 09/26/19 08:49 Pulse 86 09/26/19 03:45 Pulse Rhythm Regular 09/26/19 04:56 Respiratory Rate 14 09/26/19 08:49 Respiratory Effort Non-Labored 09/26/19 04:56 Respiratory Depth Normal 09/26/19 04:56 Respiratory Pattern Normal 09/26/19 04:56 Blood Pressure 122/84 09/26/19 08:49 Pulse Oximetry 99 09/26/19 08:49 Oxygen Delivery Method Room Air 09/26/19 08:49 Oxygen Flow Rate 0 09/26/19 08:49 Pain Level 0 09/26/19 08:49 Intake & Output 09/25/19 09/25/19 09/26/19 11:59 23:59 11:59 Intake Total 560 / 560 Output Total 900 / 900 1340 / 1340 Balance -340 / -340 -1330 / -1330 Weight 56.36 kg Intake: IV Oral 550 / 550 Output: Urine 600 / 600 1270 / 1270 Stool 300 / 300 70 / 70 Other: Urine Color Yellow Yellow Urine Appearance Clear Clear Urine Odor Normal None Stool Size Moderate Small Stool Characteristics Liquid Liquid Green Green Voiding Methods Toilet Toilet Laboratory Results WBC 10.01 k/cumm (4.4-10.8) 09/25/19 15:00 RBC 4.64 m/cumm (4.00-5.20) 09/25/19 15:00 Hgb 13.8 g/dL (12.0-15.5) 09/25/19 15:00 Hct 40.2 % (36.0-46.0) 09/25/19 15:00 MCV 86.6 fL (80-95) 09/25/19 15:00 MCH 29.7 pg (27.0-33.0) 09/25/19 15:00 MCHC 34.3 g/dL (32.0-36.0) 09/25/19 15:00 RDW 12.5 % (11.7-14.6) 09/25/19 15:00 Plt Count 391 x1000/uL (130-400) 09/25/19 15:00 MPV 9.3 fL (8.0-11.0) 09/25/19 15:00 Immature Gran % 0.2 % 09/25/19 15:00 Neutrophils % 62.3 09/25/19 15:00 Lymphocytes % 26.0 09/25/19 15:00 Monocytes % 9.2 09/25/19 15:00 Eosinophils % 2.0 09/25/19 15:00 Basophils % 0.3 09/25/19 15:00 Absolute Neutrophils 6.24 k/cumm (1.2-6.7) 09/25/19 15:00 Absolute Lymphocytes 2.60 k/cumm (1.2-3.4) 09/25/19 15:00 Absolute Monocytes 0.92 k/cumm (0.11-0.7) H 09/25/19 15:00 Absolute Eosinophils 0.20 k/cumm (0.0-0.7) 09/25/19 15:00 Absolute Basophils 0.03 k/cumm (0.0-0.2) 09/25/19 15:00 Sodium Cancelled 09/25/19 15:18 Potassium Cancelled 09/25/19 15:18 Chloride Cancelled 09/25/19 15:18 Carbon Dioxide Cancelled 09/25/19 15:18 Anion Gap Cancelled 09/25/19 15:18 BUN Cancelled 09/25/19 15:18 Creatinine Cancelled 09/25/19 15:18 Estimated GFR/1.73 m2 Cancelled 09/25/19 15:18 Glucose Cancelled 09/25/19 15:18 Calcium Cancelled 09/25/19 15:18 Total Bilirubin Cancelled 09/25/19 15:18 AST Cancelled 09/25/19 15:18 ALT Cancelled 09/25/19 15:18 Alkaline Phosphatase Cancelled 09/25/19 15:18 C-Reactive Protein 1.18 mg/dL (0.0-0.3) H 09/25/19 15:00 Total Protein Cancelled 09/25/19 15:18 Albumin Cancelled 09/25/19 15:18 Triglycerides 422 mg/dL (<150) H 09/25/19 15:18 Total Cholesterol 244 mg/dL (<200) H 09/25/19 15:18 LDL Cholesterol Direct 131 mg/dL (<100) H 09/25/19 15:18 LDL Cholesterol, Calc Tnp mg/dL (<100) 09/25/19 15:18 HDL Cholesterol 40 mg/dL (40-60) 09/25/19 15:18 Lipase 136 U/L (73-393) 09/25/19 15:00 Urine Color Yellow (Yellow) 09/25/19 16:20 Urine Clarity Clear (Clear) 09/25/19 16:20 Urine pH 5.5 (5-8) 09/25/19 16:20 Ur Specific [place] 1.020 (1.005-1.025) 09/25/19 16:20 Urine Protein Negative mg/dL (Negative) 09/25/19 16:20 Urine Ketones Negative mg/dL (Negative) 09/25/19 16:20 Urine Blood Negative (Negative) 09/25/19 16:20 Urine Nitrite Negative (Negative) 09/25/19 16:20 Urine Bilirubin Negative (Negative) 09/25/19 16:20 Urine Urobilinogen 0.2 EU/dL (Up TO 0.2) 09/25/19 16:20 Ur Leukocyte Esterase Negative (Negative) 09/25/19 16:20 Urine Glucose Negative mg/dL (Negative) 09/25/19 16:20
[2019-09-26 11:49] LABS: Anion Gap 4.7 mmol/L (3-11); BUN 9 mg/dL (7-18); CO2 32.3 mmol/L (21.0-32.0); CREATININE 0.97 mg/dL (0.55-1.02); Calcium 8.8 mg/dL (8.5-10.1); Chloride 100 mmol/L (98-107); Estimated GFR 59.62 (mL/min/1.73m2); Glucose 99 mg/dL (74-106); Sodium 137 mmol/L (136-145)
--- NOTE | 2019-09-26 12:27 | W.PM.DS.N ---
Date of service: 09/26/19 Time of Service: 12:27 DS: Diagnosis Discharge Diagnosis (1) Abdominal pain: Status: Acute (2) Diverticula of colon: Status: Acute (3) Acute diverticulitis: Status: Acute Discharge Plan Disposition Patient Disposition: HOME Condition: Good Discharge Details Reason For Visit: ACUTE abd pain Admit Date/Time: 09/25/19 14:12 Admit Provider: Yessica Jones Attending Provider: Yessica Jones [facility] Hospital Course: see addendum Home Meds and New Rx's Prescriptions: New dicyclomine 20 mg tablet 20 mg PO QID PRN (Reason: bowel spasms) Qty: 60 RF: 0 Continued Metamucil 3.4 gram/5.4 gram powder 2 tbs PO DAILY RF: 0 venlafaxine 75 mg tablet 75 mg PO BID Qty: 180 RF: 3 Hair,Skin and Nails 1 mg iron-66.7 mcg-1,000 mcg Tablet 1 tab PO DAILY RF: 0 acetaminophen [Tylenol] 325 mg Tablet 650 mg PO Q6H PRNQty: 30 RF: 0 ibuprofen 600 mg tablet 600 mg PO Q6H PRN (Reason: pain) Qty: 30 RF: 0 Discharge Instructions Instructions: Low Fiber Diet (GEN), High Fiber Diet (GEN) Additional Instructions: -Follow-up with Dr. Jones in 1 week. -soft diet: No beef/pork raw vegetables x1 -week. Cooked vegetables are fine. Transition to high fiber diet in 1 wks time. -no straining to move bowels -If you do not move your bowels daily take a dose of OTC milk of magnesia -It is ok to shower/bathe - You may find that your appetite is smaller. Eat 3-6 small meals throughout the day. It is important to drink lots of water after surgery, 6-10 glasses a day. 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 -We do want you up walking, at least 5-6 times per day. This is very important to prevent pneumonia and blood clots. You can climb stairs, take them slowly. -You may find that you are very tired- this is normal. Referral sent to PT for low back pain. Stand Alone Forms: Nursing Discharge Form Referrals: Yessica Jones DO [OSTEOPATHIC DOCTOR] - 10/04/19 10:00 am Activity:: no lifting over 20#'s. no strenuous activity x 1 wks time Equipment/Supplies:: No Equipment Needed Diet:: soft diet x1 week time, than trnasiton to high fiber diet Discharge Orders Discharge Orders: Discharge Order (Routine); Ordered 09/26/19 Ordered By: Yessica Jones DS: Summary Status at Discharge Functional status at discharge: independent ambulation Overall status at discharge: patient is back to baseline Mental Status: mental status grossly normal Speech and Movement: speech and movement normal Mood: congruent mood Affect: normal affect Exam Psych Mental Status: mental status grossly normal Speech and Movement: speech and movement normal Mood: congruent mood Affect: normal affect DS: Data Vitals/I&O Vitals and I&O: Vital Signs Temperature 36.6 C 09/26/19 08:49 Temperature Source Tympanic 09/26/19 08:49 Pulse 86 09/26/19 03:45 Pulse Rhythm Regular 09/26/19 08:25 Respiratory Rate 14 09/26/19 08:49 Respiratory Effort 09/26/19 08:25 Respiratory Depth Normal 09/26/19 08:25 Respiratory Pattern Normal 09/26/19 04:56 Blood Pressure 122/84 09/26/19 08:49 Pulse Oximetry 99 09/26/19 08:49 Oxygen Delivery Method Room Air 09/26/19 08:49 Oxygen Flow Rate 0 09/26/19 08:49 Pain Level 0 09/26/19 08:49 Intake & Output 09/25/19 09/26/19 09/26/19 23:59 11:59 23:59 Intake Total 560 / 560 490 / 490 Output Total 900 / 900 1340 / 1340 Balance -340 / -340 -850 / -850 Weight 56.36 kg Intake: IV Oral 550 / 550 480 / 480 Output: Urine 600 / 600 1270 / 1270 Stool 300 / 300 70 / 70 Other: Urine Color Yellow Yellow Urine Appearance Clear Clear Urine Odor Normal None Stool Size Moderate Small Stool Characteristics Liquid Liquid Green Green Voiding Methods Toilet Toilet Data Completed and Pending Labs on day of discharge: Labs from last 24 hours 09/26/19 09/25/19 09/25/19 11:27 21:00 18:00 WBC RBC Hgb Hct MCV MCH MCHC RDW Plt Count MPV Immature Gran % Neutrophils % Lymphocytes % Monocytes % Eosinophils % Basophils % Absolute Neutrophils Absolute Lymphocytes Absolute Monocytes Absolute Eosinophils Absolute Basophils Sodium 137 Potassium 4.0 Chloride 100 Carbon Dioxide 32.3 H Anion Gap 4.7 BUN 9 D Creatinine 0.97 Estimated GFR/1.73 m2 59.62 Glucose 99 Calcium 8.8 Total Bilirubin AST ALT Alkaline Phosphatase C-Reactive Protein Total Protein Albumin Triglycerides Total Cholesterol LDL Cholesterol Direct LDL Cholesterol, Calc HDL Cholesterol Lipase TSH Pending Urine Color Urine Clarity Urine pH Ur Specific [place] Urine Protein Urine Ketones Urine Blood Urine Nitrite Urine Bilirubin Urine Urobilinogen Ur Leukocyte Esterase Urine Glucose Stool Campylobacter PCR Pending Stool Salmonella PCR Pending Stool Shigella PCR Pending COVID-19 PCR Pending Nasopharyn COVID-19 PCR Pending Shiga Toxin (PCR) Pending Ref Test Perform Site Pending 09/25/19 09/25/19 09/25/19 16:20 15:18 15:00 WBC RBC Hgb Hct MCV MCH MCHC RDW Plt Count MPV Immature Gran % Neutrophils % Lymphocytes % Monocytes % Eosinophils % Basophils % Absolute Neutrophils Absolute Lymphocytes Absolute Monocytes Absolute Eosinophils Absolute Basophils Sodium Cancelled 138 Potassium Cancelled 3.9 Chloride Cancelled 101 Carbon Dioxide Cancelled 26.6 Anion Gap Cancelled 10.4 BUN Cancelled 16 Creatinine Cancelled 1.09 H Estimated GFR/1.73 m2 Cancelled 52.11 Glucose Cancelled 113 H Calcium Cancelled 10.2 H Total Bilirubin Cancelled 0.3 AST Cancelled 19 ALT Cancelled 26 Alkaline Phosphatase Cancelled 64 C-Reactive Protein 1.18 H Total Protein Cancelled 7.6 Albumin Cancelled 3.8 Triglycerides 422 H Total Cholesterol 244 H LDL Cholesterol Direct 131 H LDL Cholesterol, Calc Tnp HDL Cholesterol 40 Lipase TSH Urine Color Yellow Urine Clarity Clear Urine pH 5.5 Ur Specific [place] 1.020 Urine Protein Negative Urine Ketones Negative Urine Blood Negative Urine Nitrite Negative Urine Bilirubin Negative Urine Urobilinogen 0.2 Ur Leukocyte Esterase Negative Urine Glucose Negative Stool Campylobacter PCR Stool Salmonella PCR Stool Shigella PCR COVID-19 PCR Nasopharyn COVID-19 PCR Shiga Toxin (PCR) Ref Test Perform Site 09/25/19 09/25/19 15:00 15:00 WBC 10.01 RBC 4.64 Hgb 13.8 Hct 40.2 MCV 86.6 MCH 29.7 MCHC 34.3 RDW 12.5 Plt Count 391 MPV 9.3 Immature Gran % 0.2 Neutrophils % 62.3 Lymphocytes % 26.0 Monocytes % 9.2 Eosinophils % 2.0 Basophils % 0.3 Absolute Neutrophils 6.24 Absolute Lymphocytes 2.60 Absolute Monocytes 0.92 H Absolute Eosinophils 0.20 Absolute Basophils 0.03 Sodium Potassium Chloride Carbon Dioxide Anion Gap BUN Creatinine Estimated GFR/1.73 m2 Glucose Calcium Total Bilirubin AST ALT Alkaline Phosphatase C-Reactive Protein Total Protein Albumin Triglycerides Total Cholesterol LDL Cholesterol Direct LDL Cholesterol, Calc HDL Cholesterol Lipase 136 TSH Urine Color Urine Clarity Urine pH Ur Specific [place] Urine Protein Urine Ketones Urine Blood Urine Nitrite Urine Bilirubin Urine Urobilinogen Ur Leukocyte Esterase Urine Glucose Stool Campylobacter PCR Stool Salmonella PCR Stool Shigella PCR COVID-19 PCR Nasopharyn COVID-19 PCR Shiga Toxin (PCR) Ref Test Perform Site [facility] Medical History (Updated 09/18/19 @ 12:42 by Yessica Jones DO) Abdominal pain (Acute) Acute diverticulitis (Acute) Anxiety (Inactive) Diverticula of colon (Acute) Foot pain, right (Inactive 09/08/17) Irritable colon (Inactive) Malignant melanoma of skin (Inactive) right leg; + Fam HX --[facility] genetic test Migraine (Inactive) Tubular adenoma (Acute) 12/15/14; Dr. Tuttle Surgical History Cholecystectomy (~2000) dental surgery History of bilateral oophorectomy (Inactive) melanoma excision (~02/2015) S/P colonoscopy (Acute) 11/2014-Tubular adenoma Social History Smoking/Tobacco Use Status: Never Alcohol Intake: never Drug use: Never Substance use type: does not use Do you feel safe at home: Yes Do you feel safe in your relationship?: Yes
[2019-09-26 12:30] LABS: COVID-19 RT-PCR UVMMC Result Negative (Negative)
[2019-09-26 12:38] LABS: TSH (W/Ref FT4) 1.56 uIU/mL (0.36-3.74)
--- NOTE | 2019-09-26 12:58 | IN_ITS ---
Date of service: 09/26/19 Time of Service: 12:40 PT Notes Visit Reasons: ACUTE DIVERTICULITIS Inpatient Physical Therapy Evaluation Date: 09/26/2019 Referring Doctor: Dr. Jones PT Orders: PT CONSULT: Patient has right abdominal pain. Work-up is totally normal. Possible hip pain referring Precautions: Standard Patient Profile/Admitting Diagnosis: Patient admitted for medical management of right abdominal pain. She has had extensive work-up without significant findings. PT consult requested to assess for possible musculoskeletal source. PMHX: Abdominal pain (Acute) Acute diverticulitis (Acute) Anxiety (Inactive) Diverticula of colon (Acute) Foot pain, right (Inactive 09/08/17) Irritable colon (Inactive) Malignant melanoma of skin (Inactive) right leg; + Fam HX --[facility] genetic test Migraine (Inactive) Tubular adenoma (Acute) 12/15/14; Dr. Tuttle Social History/Home Situation: Patient lives independently in an apartment. 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 Reports a significant amount of bending and twisting. She is fully independent at baseline. Equipment Owned/DME: None Subjective: Patient reports 8/10 right abdominal pain, with radiation to the right side of her low back. She states that she has had some episodic back pain for many years. She used to receive chiropractic intervention, although has not done so in about 20 years. She has no regular exercise regimen. No recent injuries or trauma. No radiation of pain to lower extremities. No numbness or tingling. No changes in bowel or bladder function. Objective: General Observation: Patient sitting up in chair at initiation of session. No lines. Mental Status: A and O x3 Pain: 8/10 ROM: Right Upper Extremity: WFL Left Upper Extremity: WFL Right Lower Extremity: Hip ROM is full. She has moderate endrange groin pain into flexion, although no joint restriction noted. Left Lower Extremity: Hip ROM full. Exacerbation of right-sided LBP and end ranges of left hip internal rotation. Trunk: Forward flexion allows fingertips to floor. Trunk extension is full, with mild endrange right-sided LBP. Lateral flexion was fingertips to the lateral joint line of the knee on the left, 2 inches superior to the lateral joint line of the knee on the right. She demonstrates limited segmental mobility through lumbar spine with right sidebending. Trunk rotation is WFL bilaterally. Strength: Right Upper Extremity: WFL Left Upper Extremity: WFL Right Lower Extremity: Hip flexion 5/5. Quads 5/5. Ankle dorsiflexion 5/5 Left Lower Extremity: Hip flexion 5/5. Quads 5/5. Ankle dorsiflexion 5/5 Sensation: normal Bed Mobility/Transfers: Supine?sit: Independent sit?Supine: Independent Sit?stand: Independent Gait: Fully independent ambulation without assistive device. She is able to heel walk and toe walk without upper extremity support. Balance: Static Sitting: Normal Dynamic Sitting: Normal Static Standing: Normal Dynamic Standing: Normal Special Tests: Negative slump test bilaterally. SLR allows 70 degrees bilaterally with moderate paraspinal drawing on the right. Scour test of the right hip is negative. Squish test is negative. Jade test is negative. Mobility Limitations Standardized Measure [facility] AM-PAC 6 clicks Basic Mobility Inpatient Short Form: Raw Score: 24 CMS Score: 0% deficit Informed Consent/Education: Patient instructed in purpose of PT consult and plan of care. Treatment: The session consisted of evaluation, followed by discussion regarding self-care for LBP. Patient was instructed in pelvic tilts and bridges, each of which she was able to complete without exacerbation of pain. Post session, she does report slightly increased pain symptoms. Discussed is for outpatient PT, which she will consider. Assessment: Patient is a 53 year old female referred to physical therapy services with the diagnosis of abdominal pain. Patient presents with what appears to be a couple of issues. She does have some chronic low back pain, which may be contributing to her current pain symptoms. Her abdominal pain, however, was not mechanically exacerbated, and does not appear to be musculoskeletal in origin. I have encouraged her to seek out PT intervention on an outpatient basis to address her chronic symptoms and help with tolerance to her high work demands. She will be considering this. She currently demonstrates the following impairment level findings: 1. Decreased right sidebending at the trunk 2. Chronic back pain Impairments are contributing to the following functional limitations: 1. Patient is functionally at baseline Patient is assessed as Low 43819 complexity based on the following: History: Fully independent 53-year-old female, managed in acute care for abdominal pain. Her medical work-up has been negative, and PTs consult was requested to rule out musculoskeletal source of pain. While she does have some chronic episodic low back pain, her abdominal pain was not significantly influenced mechanically. She is functionally appropriate for discharge home once medically cleared, although outpatient PT consultation has been recommended, and patient will consider. Examination: Functional limitations as noted above Presentation: Stable Decision Making: Low complexity Plan of Care/Treatment Plan: No further PT intervention required in acute care setting. DISCHARGE RECOMMENDATIONS: Recommend patient look into outpatient PT work-up, which she will consider TREATMENT CODE/TIME: 1240?1:00 ([id number]) Simona Peacock, PT, DPT [facility]
--- NOTE | 2019-09-26 15:02 | CHAPLAIN ---
I had a brief visit with Osiris. She said she was feeling better and hopes to be discharged later today.
--- NOTE | 2019-09-26 15:14 | PDOC.CMDIS ---
- If Service Date Differs Date of service: 09/26/19 Time of Service: 15:14 LACE Index Scoring Tool - Questions: Length of Stay (in days): 1 Acuity (Admit via E.D.?): No Comorbidities: Any Tumor E.D. Visits: 0 - Answers: Total Score: 3 Risk of Readmission: Low Risk Care Management Discharge Reason for Hospitalization: Abdominal pain Discharge Plan: Osiris will be discharged home with no new services. She will follow up with her surgeon and discharge plan of care. Osiris will transport via private vehicle with her sister or boyfriend. Patient/Family Education Needs: Discharge plan, limitations, follow up plan, Ask Me Three
[2019-09-27 11:17] LABS: Campylobacter PCR Negative (Negative); Salmonella PCR Negative (Negative); Shiga Toxin PCR Negative (Negative); Shigella/Enteroinvasive Ecoli Negative (Negative)
== END 2019-09-26 15:13 | disposition home or self-care (01) | DRG 392 ==
PROVIDERS: Surgery; Admitting Provider Surgery; PCP Family Medicine; Visit Provider Surgery
DX: K57.32 Diverticulitis of large intestine without perforation or abscess without bleeding (principal); F41.9 Anxiety disorder, unspecified; E78.5 Hyperlipidemia, unspecified
CPT/HCPCS: 80048; 80053; 80061; 83690; 83721; 87505; 97161; 99222; 99231; 99238; U0003; 74177; 81003; 83630; 84443; 85025; 86140; 87324; J0744; J3490; Q9967

== ENCOUNTER 2019-11-11 09:42 | Outpatient (CLI) | payer OTHER, SELFPAY ==
[2019-11-11 13:02] LABS: Calculated LDL 147 mg/dL (<100); Cholesterol 221 mg/dL (<200); HDL Cholesterol 42 mg/dL (40-60); Triglyceride 164 mg/dL (<150)
== END 2019-11-11 10:02 ==
PROVIDERS: Family Medicine; PCP Family Medicine; Visit Provider Family Medicine
DX: E78.5 Hyperlipidemia, unspecified (principal)
CPT/HCPCS: 36415; 80061

== ENCOUNTER 2021-03-02 14:20 | Outpatient (REF) | payer BC, SELFPAY ==
[2021-03-04 15:17] LABS: COVID-19 RT-PCR UVMMC Result Positive (Negative)
== END 2021-03-02 14:21 | disposition home or self-care (01) ==
LOC: LBN 14:20
PROVIDERS: PCP Family Medicine; Visit Provider Family Medicine
DX: Z20.822 Contact with and (suspected) exposure to COVID-19 (principal); R50.9 Fever, unspecified
CPT/HCPCS: U0003

== ENCOUNTER 2021-06-09 15:48 | Outpatient (REF) | payer BC, SELFPAY ==
--- NOTE | 2021-06-09 15:15 | PAPFT_PTH ---
PATIENT: Osiris Wooten LOC: [facility] U#:[id number] AGE/SX: 55/F ROOM: RE06/09/[address]: Yane Ponce : 1965 BED: DIS: 06/09/2021 SPEC #: [id number] RECD: 06/10/21 12:42 STATUS: HYUN REDulce #: [id number] ANTHONY: 06/09/21 15:[address]: Yane Ponce DEPT: [facility] Cytology RECD BY: Isabel Srinivasan Tissues: 1 - CX/ENDOCX FOR PAP SMEARS Procedures: PAP THIN PREP/UVM Screening HPV DNA PROBE Comments: [id number]
== END 2021-06-09 15:49 | disposition home or self-care (01) ==
LOC: LBN 15:48
PROVIDERS: PCP Family Medicine; Visit Provider Family Medicine
DX: Z12.4 Encounter for screening for malignant neoplasm of cervix (principal); Z11.51 Encounter for screening for human papillomavirus (HPV)
CPT/HCPCS: 88142; 87624

== ENCOUNTER 2021-06-28 02:10 | Outpatient (CLI) | payer BC, SELFPAY ==
[2021-06-28 12:13] LABS: Source Nasal/Nares
[2021-06-28 14:45] LABS: COVID-19 PCR Negative (Negative)
== END 2021-06-28 02:11 | disposition home or self-care (01) ==
LOC: LBO 02:10
PROVIDERS: PCP Family Medicine; Visit Provider Student in an Organized Health Care Education/Training Program
DX: Z20.822 Contact with and (suspected) exposure to COVID-19 (principal); Z01.818 Encounter for other preprocedural examination
CPT/HCPCS: 87635

== ENCOUNTER 2021-06-30 06:11 | Day surgery (SDC) | payer OTHER, SELFPAY ==
[2021-06-30 06:13] VITALS: BP 142/93; PULSE 85; RESP 16; TEMP 36.6; O2SAT 97
[2021-06-30] MEDS: Lactated Ringers 1,000 ML 80 ML IV (06:37)
--- NOTE | 2021-06-30 06:53 | W.ANESPRE ---
General Info Date of Service Date Performed: 06/30/21 Height: 5 ft 1 in Weight: 56.3 kg Body Mass Index (BMI): 23.4 Surgical Procedure: Operation Date: 06/30/21 07:40 Proposed Procedure Side Surgeon p Wrist ECTR Left Joon Winters MD Meds Allergies and Home Medications Allergies Allergy/AdvReac Type Severity Reaction Status Date / Time citalopram AdvReac Intermediate skin hot, Verified 06/30/21 06:17 Rash, headache Home Medication Medication Instructions Recorded multivit,Ca,min-iron gluconat 1 1 tab PO DAILY 01/30/19 mg-FA 66.7 mcg-biotin 1,000 mcg tablet (Hair,Skin and Nails) acetaminophen 325 mg tablet 650 mg PO Q6H PRN #30 tab 02/02/19 (Tylenol) ibuprofen 600 mg tablet 600 mg PO Q6H PRN #30 tab 02/02/19 psyllium husk 3.4 gram/5.4 gram 1 tbs PO DAILY gm 10/04/19 oral powder (Metamucil) losartan 50 mg tablet 50 mg PO DAILY #90 tab 06/09/21 venlafaxine 75 mg tablet 75 mg PO BID #180 tab-cap 06/09/21 Current Visit Medications: Current Medications Generic Name Dose Route Start Last Admin Trade Name Freq PRN Reason Stop Dose Admin Ringer's Solution 1,000 mls @ 80 mls/hr 06/30/21 06:00 06/30/21 06:37 IV 07/17/21 23:59 80 mls/hr INFUSION LILIANA Administration Cefazolin Sodium/Dextrose 2 gm in 50 mls @ 100 mls/hr 06/30/21 06:00 Ancef Duplex IVPB 06/30/21 23:59 PREOP LILIANA IV Miscellaneous Supplies 1 each 06/30/21 06:00 Iv Access IV 07/17/21 23:59 DIRECTED LILIANA Sodium Chloride 0 ml 06/30/21 06:00 Normal Saline Flush 10 Ml Syr IV 07/17/21 23:59 PRN PRN Sodium Chloride 0 ml 06/30/21 06:00 Normal Saline 10 Ml Vial IJ 07/17/21 23:59 DIRECTED PRN Sterile Water 0 ml 06/30/21 06:00 Water,Injection,Sterile 10 Ml Vial IJ 07/17/21 23:59 DIRECTED PRN PFSH Active Problems Active Problems: Problem Status Onset Code Anxiety F41.9 Cubital tunnel syndrome on left G56.22 Bilateral elbow joint pain M25.521, M25.522 Carpal tunnel syndrome on both sides G56.03 Essential hypertension I10 Hyperlipidemia E78.5 Chronic low back pain with right-sided sciatica M54.41, G89.29 Medical History Medical History Diverticula of colon Gastroesophageal reflux disease (07/10/14) History of COVID-19 Hx of malignant melanoma of skin (~2014) right leg; + Fam HX --[facility] genetic test Irritable colon Migraine Tubular adenoma 12/15/14; Dr. Tuttle Surgical History Surgical History Cholecystectomy (~2000) dental surgery History of bilateral oophorectomy (~2017) done for ovarian mass; benign cyst melanoma excision (~02/2015) S/P colonoscopy 11/2014-Tubular adenoma Tobacco Smoking/Tobacco Use Status: Never Alcohol Alcohol Intake: never Substance Use Substance use: Never Substance use type: does not use Vital Signs and Lab Results Vital Signs Most Recent Vital Signs in EMR: Most Recent Vital Signs Temp Pulse Resp BP Pulse Ox 36.6 C 85 16 142/93 H 97 06/30/21 06:13 06/30/21 06:13 06/30/21 06:13 06/30/21 06:13 06/30/21 06:13 Lab Results Blood Type / Crossmatch: No Data to Display Complete Blood Count: No Data to Display Complete Metabolic Panel: No Data to Display Liver Function Panel: No Data to Display Coagulation Panel: No Data to Display Cardiac Panel: No Data to Display Arterial Blood Gas: No Data to Display Venous Blood Gas: No Data to Display Pancreas Panel: No Data to Display Thyroid Panel: No Data to Display Infectious Disease: Coronavirus (COVID-19)(PCR) Negative (Negative) 06/28/21 10:08 06/28/21 Coronavirus 2019 Source Nasal/Nares 06/28/21 10:08 06/28/21 Blood Cultures: No Data to Display Toxicology Panel: No Data to Display Anesthesia Assessment and Plan Anesthesia History Personal History: No History of Anesthesia Complications Family History: No Family History of Anesthesia Complications Exercise Tolerance Exercise Tolerance: Metabolic Equivalents>4 Pertinent Negatives Pertinent Negatives: No Symptoms of GERD, No Major Cardiovascular Symptoms or Complaints, No Major Pulmonary Symptoms or Complaints and No History of CVA/TIA Cardiac & Pulmonary Exam Cardiac Exam: Normal S1/S2 Heart Sounds Pulmonary Exam: Clear Bilateral Breath Sounds Implantable Cardiac Device Does patient have a Pacemaker or an ICD?: No Airway Exam Known Difficult Airway: No Mallampati Class: 1 Mouth Opening: Normal (> 3cm) Thyromental Distance: Greater than 3 cm Neck Range of Motion: Full ROM Neck Circumference: Normal Teeth Condition: Normal Dentition ASA Classification ASA Score: ASA 2 Emergency Case?: No NPO Status NPO Status: NPO Clears >2 hours, Solids >8 hours Anesthesia Plan Resuscitation Status: Full Code Anesthesia Technique: General Anesthesia Airway Planned: Natural Airway Monitors Used: Standard Monitors
[2021-06-30 06:59] VITALS: BMI 23.4
--- NOTE | 2021-06-30 07:27 | W.PREOPHP ---
Assessment and Plan Assessment and plan (1) Carpal tunnel syndrome on both sides: Status: Deleted Assessment and plan: Osiris is a 55-year-old who has nerve study proven carpal tunnel syndrome on the left side. As a way to treat the symptoms of numbness and tingling as well as pain, I offered endoscopic carpal tunnel release. I reviewed the risk of the procedure to include bleeding, infection, pain, stiffness, continued numbness, nerve injury, continued symptoms, need for repeat procedures. Despite these risk, she elects to proceed. History of Present Illness Narrative: Osiris is a 55-year-old who has known carpal tunnel syndrome of the left side. She additionally has some pain into the left thumb. She has had nerve exercises per the diagnosis of severe carpal tunnel from the left side. Due to her occupation with repetitive task is likely the pain is coming from the carpal tunnel. As a treatment option, I have offered carpal tunnel release. She is here today for the procedure. She reports no worsening medical conditions. COVID-19 negative. Review of Systems All systems reviewed & are unremarkable except as noted in HPI and below PFSH All Active Problems (Updated 06/30/21 @ 07:29 by NED Moseley) Right carpal tunnel syndrome (Acute) Left carpal tunnel syndrome (Acute) S/P ECTR: 06/30/2021 Anxiety (Chronic) Cubital tunnel syndrome on left (Acute) Bilateral elbow joint pain (Acute) Essential hypertension (Acute) Hyperlipidemia (Acute) Chronic low back pain with right-sided sciatica (Acute) Medical History Diverticula of colon Gastroesophageal reflux disease (07/10/14) History of COVID-19 Hx of malignant melanoma of skin (~2014) right leg; + [facility] Irritable colon Migraine Tubular adenoma 12/15/14; Dr. Tuttle Surgical History Cholecystectomy (~2000) dental surgery History of bilateral oophorectomy (~2017) done for ovarian mass; benign cyst melanoma excision (~02/2015) S/P colonoscopy 11/2014-Tubular adenoma Family History Mother Substance abuse Essential hypertension Macular hole Heart disease Hyperlipidemia Father Substance abuse Essential hypertension Heart disease Hyperlipidemia Neoplasm SKIN Sister Hyperlipidemia Neoplasm SKIN Grandfather Essential hypertension Heart disease Hyperlipidemia Neoplasm pancreatic/liver Grandmother Diabetes Alzheimer disease Heart disease Son Essential hypertension Depression Daughter No problems noted. Social History Smoking/Tobacco Use Status: Never Smoking risk assessment performed?: Yes Alcohol Intake: never Drug use: Never Substance use type: does not use Household members: none Number of Children: 2 Education Level: college current occupation: Works at [employer] in [place] Pets and animals: Yes Pets and animals: cat(s) What is your relationship status?: Panel score (0-1 are the most socially isolated patients): 0 What type of physical activity do you participate in: walking Do you feel safe at home: Yes Do you feel safe in your relationship?: Yes Additional Social history: lives alone Meds Allergies and Home Medications Allergies Allergy/AdvReac Type Severity Reaction Status Date / Time citalopram AdvReac Intermediate skin hot, Verified 06/30/21 06:17 Rash, headache Home Medications Medication Instructions Recorded Confirmed Type multivit,Ca,min-iron gluconat 1 1 tab PO DAILY 01/30/19 06/29/21 History mg-FA 66.7 mcg-biotin 1,000 mcg tablet (Hair,Skin and Nails) acetaminophen 325 mg tablet 650 mg PO Q6H PRN #30 tab 02/02/19 06/29/21 Rx (Tylenol) ibuprofen 600 mg tablet 600 mg PO Q6H PRN #30 tab 02/02/19 06/29/21 Rx psyllium husk 3.4 gram/5.4 gram 1 tbs PO DAILY gm 10/04/19 06/29/21 History oral powder (Metamucil) losartan 50 mg tablet 50 mg PO DAILY #90 tab 06/09/21 06/30/21 Rx venlafaxine 75 mg tablet 75 mg PO BID #180 tab-cap 06/09/21 06/30/21 Rx Exam Resp Auscultation: clear to auscultation bilaterally Cardio Rate: regular rate Rhythm: regular rhythm Results Last Vital Signs Temp 36.6 C 06/30/21 06:13 Pulse 85 04/13/22 06:13 Resp 16 06/30/21 06:13 BP 142/93 H 06/30/21 06:13 Pulse Ox 97 06/30/21 06:13
--- NOTE | 2021-06-30 07:28 | PDOC.DSDIS_ITS ---
Discharge Plan Disposition Patient Disposition: HOME Condition: Good Discharge Details Reason For Visit: L ECTR Attending Provider: Joon Winters Primary Care Provider: Yane Ponce Home Meds and New Rx's Prescriptions: New acetaminophen 500 mg tablet 1,000 mg PO TID Qty: 90 0RF ibuprofen 600 mg tablet 600 mg PO TID PRN (Reason: pain) Qty: 90 0RF Continued venlafaxine 75 mg tablet 75 mg PO BID Qty: 180 3RF losartan 50 mg tablet 50 mg PO DAILY Qty: 90 3RF Metamucil 3.4 gram/5.4 gram powder 1 tbs PO DAILY 0RF Rx Instructions: mix into at least 8 oz of water or juice before administering Hair,Skin and Nails 1 mg iron-66.7 mcg-1,000 mcg Tablet 1 tab PO DAILY 0RF Rx Instructions: hasnt taken in a long time Discontinued acetaminophen [Tylenol] 325 mg Tablet 650 mg PO Q6H PRNQty: 30 0RF ibuprofen 600 mg tablet 600 mg PO Q6H PRN (Reason: pain) Qty: 30 0RF Discharge Instructions Stand Alone Forms: Singh Kwong Tunnel Release Referrals: Joon Winters MD [ [facility] STAFF PHYSICIAN] - Activity:: Activity as Tolerated Remove Dressings/Wound Care:: 48 hours Shower/Bathe:: 48 hours Diet:: As Tolerated Discharge Orders Discharge Orders: Discharge Order (Routine); Ordered 06/30/21 Ordered By: José Miguel Bradley DS: Diagnosis Discharge Diagnosis (1) Left carpal tunnel syndrome: Status: Acute
[2021-06-30] MEDS: ceFAZolin 2 GM/50 ML BAG IVPB (07:30)
[2021-06-30] MEDS: Sodium Bicarbonate 50 MEQ/50 ML VIAL (07:34)
[2021-06-30 07:45] VITALS: BP 109/74; PULSE 72; RESP 12; TEMP 36.3; O2SAT 95
[2021-06-30 08:15] VITALS: BP 135/82; PULSE 67; RESP 16; TEMP 36.5; O2SAT 98
--- NOTE | 2021-06-30 08:15 | W.ANESPOSTOP ---
Postoperative Evaluation Date, Time and Location Date Performed: 06/30/21 Time Performed: 08:16 Patient Location: Day Surgery Unit Vital Signs Most Recent Imported Vital Signs: Most Recent Vital Signs Temp Pulse Resp BP Pulse Ox 36.3 C L 72 12 109/74 95 06/30/21 07:45 06/30/21 07:45 06/30/21 07:45 06/30/21 07:45 06/30/21 07:45 Pain Score Most Recent Pain Score: Most Recent Pain Score Pain Level 0 06/30/21 07:45 Assessment Mental Status: Awake (Alert & Oriented to Patient Baseline) Airway and Respiratory Function: Patent airway with normal (patient baseline) respiratory exam Cardiovascular Function: Hemodynamically Stable Hydration Status: Adequately Hydrated Nausea & Vomiting: No Nausea or Vomiting Pain: Pt. Denies Any Pain Peripheral Nerve Block: Patient did not receive a nerve block
--- NOTE | 2021-07-01 08:01 | ROE_ITS ---
Date of service: 06/30/21 Time of Service: 07:40 Operative Note Operative Note DATE OF PROCEDURE: 06/30/21 PRE-OP DIAGNOSIS: Left Carpal Tunnel Syndrome POST-OP DIAGNOSIS: same PROCEDURE: Left Endoscopic Carpal Tunnel Release SURGEON: Joon Winters ANESTHESIA TYPE: General:No Airway Refer to Anesthesia Record ESTIMATED BLOOD LOSS: 0 PATHOLOGY: none sent TOURNIQUET TIME: 5 COMPLICATIONS: None Patient was transported to: same day Patient's condition: stable Indications: I have seen Osiris in clinic for symptoms of carpal tunnel syndrome. The numbness, tingling, and pain limited function. Clinical exam findings with nerve conduction tests confirmed the diagnosis of carpal tunnel syndrome. Nonoperative measures such as bracing, time, activity modifications had been tried but disability and pain persisted. I discussed carpal tunnel release with the patient. I reviewed the risks of the procedure to include, but not limited to, bleeding, infection, pain, stiffness, incomplete release, damage to nerves or vessels, persistent numbness, recurrence. Despite these risks, the patient elected to proceed. Findings: There was tightened carpal tunnel. This was dilated and released successfully with the endoscopic with increased space within the tunnel. The antebrachial fascia was released proximally freeing the median nerve at the wrist. Procedure Description: Osiris was greeted in the preoperative holding area where the correct side was identified and marked. The consent was reviewed with the patient and signed. The history and physical was updated. All questions were answered. Osiris was taken back to the operating room. The patient was placed into the supine position on the operating room table with the left arm on an arm board. A nonsterile tourniquet was placed high onto the arm. All bony prominences were well padded. Prophylactic antibiotics in the form of Cefazolin were administered. The left arm was then prepped with Chloraprep and draped in a standard fashion with stockinette and extremity drape. A timeout to confirm correct identity, side and site, procedure, allergies, anesthesia, and medical concerns was performed. The surgical site was marked in the volar wrist creases in line with the radial border of the fourth ray. This area was anesthetized with approximately 6cc of 1% Lidocaine. The limb was then exsanguinated with an Esmarch. The skin was incised with a 15 blade, approximately 1cm. The skin only was cut and the deeper tissue was dissected bluntly with a tenotomy scissor, avoiding passing nerve and venous structures. The fascia was penetrated and opened bluntly. A two-prong skin hook was placed under this proximal fascial edge. A series of hamate finders were used to identify and dilate the carpal tunnel. Synovial elevator was used to free synovial attachments to the underside of the transverse carpal ligament. My thumb was kept in the palm to darin the distal extent of the carpal tunnel and correctly position the hand. The Microaire endoscope was inserted without difficulty and without resistance. Excellent visualization showed horizontally running fibers of the transverse carpal ligament (TCL). The distal extent of the TCL was visualized and the end of the scope palpated with the thumb. The blade was elevated and withdrawn from distal to proximal. The TCL was split into two flaps. The endoscope was reinserted to confirm complete release and any remnant ligament was incised. The scope was withdrawn and the proximal aspect of the carpal tunnel was grossly inspected and appeared release with the median nerve visible. The antebrachial fascia at the level of the wrist was then freed from the overlying skin and then the underlying median nerve with blunt dissection. This was transected longitudinally for about 3cm proximal to the wrist incision. The wound was then irrigated with easy flow of irrigant distally and proximally. The incision was closed with a single 4-0 Nylon suture. The wound was dressed w ith Xeroform, Gauze, Kerlix and Rosalio. The tourniquet was deflated with the initial dressing and held with some pressure. Blood flow returned easily to all digits with capillary refill less than 2 seconds. The patient tolerated the procedure well and was returned to the Same Day Surgery area in a stable condition suffering no known complication.
== END 2021-06-30 08:55 | disposition home or self-care (01) ==
PROVIDERS: PCP Family Medicine; Visit Provider Student in an Organized Health Care Education/Training Program
PROC: 01N54ZZ Release Median Nerve, Percutaneous Endoscopic Approach (ICD-10-PCS; CPT 29848; principal; 2021-06-30 07:30)
DX: G56.02 Carpal tunnel syndrome, left upper limb (principal); I10 Essential (primary) hypertension; E78.5 Hyperlipidemia, unspecified; K21.9 Gastro-esophageal reflux disease without esophagitis
CPT/HCPCS: 29848; J0690; J1885; J2001; J2405; J2704

== ENCOUNTER 2022-06-20 12:41 | Outpatient (REF) | payer BC, SELFPAY ==
[2022-06-20 20:42] LABS: Abs Immature Grans 0.05 10^3/uL (0.0-0.06); Absolute Basophil Count 0.09 10^3/uL (0.0-0.2); Absolute Eosinophil Count 0.12 10^3/uL (0.0-0.7); Absolute Lymphocyte Count 3.08 10^3/uL (1.2-3.4); Basophils % 0.8; HCT 42.8 % (36.0-46.0); HGB 14.3 g/dL (11.2-15.7); Immature Grans % 0.4; Lymphocytes % 26.3; MCH 29.4 pg (27.0-33.0); MCHC 33.4 % (32.0-36.0); MCV 88 fL (80-95); MPV 9.6 fL (8.0-11.0); Monocytes % 7.3; Neutrophils % 64.2; Platelet Count 410 10^3/uL (130-400); RBC 4.87 10^6/uL (3.93-5.22); RDW 12.2 % (11.7-14.6); RDW-SD 39.1 fL; WBC 11.72 10^3/uL (4.4-10.8)
[2022-06-20 20:43] LABS: Absolute Monocyte Count 0.86 10^3/uL (0.1-0.8); Absolute Neutrophil Count 7.52 10^3/uL (1.2-6.7)
[2022-06-20 20:56] LABS: ALT 36 U/L (14-59); AST 27 U/L (15-37); Albumin 4.4 g/dL (3.4-5.0); Alkaline Phosphatase 82 U/L (46-116); Anion Gap 9.3 mmol/L (3-11); BUN 22 mg/dL (7-18); Bilirubin, Total 0.4 mg/dL (0.2-1.0); CO2 32.7 mmol/L (21.0-32.0); CREATININE 1.9 mg/dL (0.55-1.02); Calcium 10.7 mg/dL (8.5-10.1); Chloride 97 mmol/L (98-107); Estimated GFR 30.23 (mL/min/1.73m2); Glucose 102 mg/dL (74-106); Potassium 3.3 mmol/L (3.5-5.1); Sodium 139 mmol/L (136-145); Total Protein 7.6 g/dL (6.4-8.2)
== END 2022-06-20 12:42 | disposition home or self-care (01) ==
LOC: LBN 12:41
PROVIDERS: PCP Family Medicine; Visit Provider Nurse Practitioner Family
DX: R10.30 Lower abdominal pain, unspecified (principal); I10 Essential (primary) hypertension
CPT/HCPCS: 80053; 85025

== ENCOUNTER 2022-06-29 02:55 | Outpatient (CLI) | payer BC, SELFPAY ==
[2022-06-29 16:19] LABS: Anion Gap 6.4 mmol/L (3-11); BUN 16 mg/dL (7-18); CO2 31.6 mmol/L (21.0-32.0); CREATININE 1.1 mg/dL (0.55-1.02); Calcium 9.6 mg/dL (8.5-10.1); Calculated LDL 191 mg/dL (<100); Chloride 102 mmol/L (98-107); Cholesterol 273 mg/dL (<200); Estimated GFR 58.24 (mL/min/1.73m2); Glucose 82 mg/dL (74-106); HDL Cholesterol 54 mg/dL (40-60); Potassium 3.9 mmol/L (3.5-5.1); Sodium 140 mmol/L (136-145); Triglyceride 143 mg/dL (<150)
[2022-07-01 09:43] LABS: Hepatitis C Ab w Rflx HCV PCR Negative (Negative)
[2022-07-01 10:02] LABS: HIV-1/2 Ag & Ab Screen Negative (Negative)
== END 2022-06-29 02:56 | disposition home or self-care (01) ==
LOC: LBO 03:00
PROVIDERS: PCP Family Medicine; Visit Provider Family Medicine
DX: Z00.00 Encounter for general adult medical examination without abnormal findings (principal); Z13.220 Encounter for screening for lipoid disorders; Z11.4 Encounter for screening for human immunodeficiency virus [HIV]; Z11.59 Encounter for screening for other viral diseases
CPT/HCPCS: 36415; 80048; 80061; 86803; 87389

== ENCOUNTER 2023-01-18 05:13 | Outpatient (CLI) | payer BC, SELFPAY ==
[2023-01-18 08:06] LABS: Calculated LDL 84 mg/dL (<100); Cholesterol 161 mg/dL (<200); HDL Cholesterol 51 mg/dL (40-60); Triglyceride 130 mg/dL (<150)
== END 2023-01-18 05:14 | disposition home or self-care (01) ==
LOC: LBO 05:14
PROVIDERS: PCP Family Medicine; Visit Provider Family Medicine
DX: E78.5 Hyperlipidemia, unspecified (principal); Z13.6 Encounter for screening for cardiovascular disorders
CPT/HCPCS: 36415; 80061

== ENCOUNTER 2023-01-19 18:29 | Emergency (ER) | payer BC, SELFPAY ==
--- NOTE | 2023-01-19 18:30 | RT.EKG_ITS ---
APPROVED REPORT Exam: Resting ECG Reason for Exam: dizziness Patient Location: E HR:72 bpm ECG Measurements Heart Rate 72 AXIS FL 151 P 47 QRSd 98 QRS 20 QT 387 T 45 QTc 423 Conclusion Sinus rhythm...normal P axis, V-rate 60- 99 Low voltage, precordial leads...precordial leads <1.0mV Physician: no stemi
[2023-01-19 18:37] VITALS: BP 175/101; PULSE 73; RESP 18; TEMP 36.6; O2SAT 99
[2023-01-19 19:11] LABS: Abs Immature Grans 0.02 10^3/uL (0.0-0.06); Absolute Basophil Count 0.05 10^3/uL (0.0-0.2); Absolute Eosinophil Count 0.21 10^3/uL (0.0-0.7); Absolute Lymphocyte Count 3.64 10^3/uL (1.2-3.4); Absolute Monocyte Count 0.63 10^3/uL (0.1-0.8); Absolute Neutrophil Count 5.02 10^3/uL (1.2-6.7); Basophils % 0.5; Eosinophils % 2.2; HCT 38.8 % (36.0-46.0); HGB 13.1 g/dL (11.2-15.7); Immature Grans % 0.2; MCH 29.2 pg (27.0-33.0); MCHC 33.8 % (32.0-36.0); MCV 87 fL (80-95); MPV 9.3 fL (8.0-11.0); Monocytes % 6.6; Neutrophils % 52.5; Platelet Count 318 10^3/uL (130-400); RBC 4.48 10^6/uL (3.93-5.22); RDW 12.6 % (11.7-14.6); RDW-SD 39.8 fL; WBC 9.57 10^3/uL (4.4-10.8)
[2023-01-19 19:40] LABS: ALT 40 U/L (14-59); AST 23 U/L (15-37); Albumin 3.6 g/dL (3.4-5.0); Alkaline Phosphatase 76 U/L (46-116); Anion Gap 6.5 mmol/L (3-11); BUN 15 mg/dL (7-18); Bilirubin, Total 0.3 mg/dL (0.2-1.0); CO2 31.5 mmol/L (21.0-32.0); CREATININE 0.7 mg/dL (0.55-1.02); Calcium 9.1 mg/dL (8.5-10.1); Chloride 103 mmol/L (98-107); Estimated GFR 99.57 (mL/min/1.73m2); Glucose 102 mg/dL (74-106); Magnesium 1.6 mg/dL (1.8-2.4); Potassium 3.1 mmol/L (3.5-5.1); Sodium 141 mmol/L (136-145); TSH 1.71 uIU/mL (0.36-3.74); Total Protein 7.2 g/dL (6.4-8.2); Troponin I < 50 ng/L (<or=60)
[2023-01-19] MEDS: Meclizine 25 MG TAB PO (19:59)
[2023-01-19 20:18] VITALS: RESP 18
[2023-01-19 20:48] VITALS: BP 169/101; PULSE 63; RESP 16; O2SAT 100
[2023-01-19] MEDS: Dexamethasone 4 MG TAB 10 MG PO (21:40)
[2023-01-19 21:41] VITALS: BP 177/103; PULSE 60; TEMP 35.9; O2SAT 100
[2023-01-19] MEDS: Potassium Chloride 20 MEQ TABCR 40 MEQ PO (21:41)
[2023-01-19] MEDS: Magnesium Oxide 400 MG TAB 800 MG PO (21:42)
--- NOTE | 2023-01-20 16:32 | W.ED.GENAD ---
Discharge Plan Disposition Patient Disposition: Home Discharge Details Clinical Impression: Dizziness Primary Care Provider: Yane Ponce ED Provider: Isabel Lopez Home Meds and New Rx's Prescriptions: Continued famotidine 20 mg tablet 20 mg PO DAILY losartan 50 mg tablet 50 mg PO DAILY Qty: 90 3RF venlafaxine 75 mg tablet 75 mg PO BID Qty: 180 3RF atorvastatin 40 mg tablet 40 mg PO QHS Qty: 90 3RF Hair,Skin and Nails 1 mg iron-66.7 mcg-1,000 mcg Tablet 1 tab PO DAILY Rx Instructions: hasnt taken in a long time ibuprofen 600 mg tablet 600 mg PO TID PRN (Reason: pain) Qty: 90 0RF Discharge Instructions Instructions: Dizziness (ED) Additional Instructions: Take a decongestant tonight, you received a dose of steroid that would likely be in your system for 3 days and help fully drain the fluid in your left ear I recommend laying flat and keeping yourself hydrated throughout the evening, the less you move more your symptoms will improve Please rest and take it easy tomorrow Your potassium and magnesium are slightly low, we will give you supplementation Please be reevaluated should you have persistent or worsening symptoms Referrals: Yane Ponce MD [Primary Care Provider] - Discharge Data Discharge Date/Time-TO BE ENTERED AT DEPARTURE: 01/19/23 21:48 Medical Decision Making 57-year-old female, alert and oriented cranial nerves II through XII intact, ambulatory with steady gait Negative [id number], negative heel funk, negative pronator drift, left beating horizontal nystagmus,, negative heel funk, strength and sensation intact distally to all 4 extremities, sensation intact all 4 extremities positive hints exam, clinically this patient has BPPV, low suspicion for cerebellar stroke Oneida maneuver performed performed x4 and patient had marked symptomatic improvement, she is not ambulatory with steady gait, she is encouraged to take her antihypertensive when she returns home as her blood pressure is elevated I did consider CT imaging, however I have low suspicion for central cause and MRI would be more appropriate, I suspect vestibular etiology, bulging left TM, given a single dose of Decadron and will take decongestants at home Return precautions reviewed and patient expressed understanding discharged home ambulatory steady gait in no acute distress Encouraged to return immediately should she have return of symptoms or any persistent symptoms HPI General Date/Time Provider Initiated Documentation: 01/19/23 18:34. HPI Narrative: This 57-year-old female presents with headache intermittent leave for the past month. Today she awoke with dizziness. She was sent over by urgent care for assessment. She states that she actually drove here and that her dizziness has improved mildly. She denies any chest pain or shortness of breath. She denies any vision change, nausea or vomiting. She denies strength or sensation change. She denies any palpitations. Denies any urinary symptoms. Denies any new medications or chance of . States her symptoms are exacerbated with movement of her head. Does states she has had some pressure in her left ear. Has a mild headache right now. History of migraines, denies migraine headache currently. Related Data Home Medications Medication Instructions Recorded Confirmed multivit,Ca,min-iron gluconat 1 1 tab PO DAILY 01/30/19 07/22/22 mg-FA 66.7 mcg-biotin 1,000 mcg tablet (Hair,Skin and Nails) ibuprofen 600 mg tablet 600 mg PO TID PRN pain #90 tabs 06/30/21 07/22/22 famotidine 20 mg tablet 20 mg PO DAILY 06/10/22 07/22/22 losartan 50 mg tablet 50 mg PO DAILY #90 tabs 06/10/22 07/22/22 venlafaxine 75 mg tablet 75 mg PO BID #180 tab-caps 06/10/22 07/22/22 atorvastatin 40 mg tablet 40 mg PO QHS #90 tabs 07/02/22 07/22/22 Previous Rx's Medication Instructions Recorded ibuprofen 600 mg tablet 600 mg PO TID PRN pain #90 tabs 06/30/21 losartan 50 mg tablet 50 mg PO DAILY #90 tabs 06/10/22 venlafaxine 75 mg tablet 75 mg PO BID #180 tab-caps 06/10/22 atorvastatin 40 mg tablet 40 mg PO QHS #90 tabs 07/02/22 Allergies Allergy/AdvReac Type Severity Reaction Status Date / Time citalopram AdvReac Intermediate skin hot, Verified 01/19/23 16:52 Rash, headache General Stated Complaint: Dizzy/Sync [place]: 3 PFSH All Active Problems (Updated 01/19/23 @ 21:36 by NED Castro) Dizziness (Acute) Diverticulitis of ascending colon (Acute) Macular pucker, left eye (Acute) Right carpal tunnel syndrome (Acute) Cubital tunnel syndrome on left (Acute) Bilateral elbow joint pain (Acute) Essential hypertension (Acute) Hyperlipidemia (Acute) Chronic low back pain with right-sided sciatica (Acute) Anxiety (Chronic) Medical History Diverticula of colon Gastroesophageal reflux disease (07/10/14) History of COVID-19 Hx of malignant melanoma of skin (~2014) right leg; + Fam HX --[facility] genetic test Irritable colon Migraine Tubular adenoma 12/15/14; Dr. Tuttle Surgical History Cholecystectomy (~2000) dental surgery History of bilateral oophorectomy (~2017) done for ovarian mass; benign cyst Left carpal tunnel syndrome S/P ECTR: 06/30/2021 melanoma excision (~02/2015) S/P colonoscopy 11/2014-Tubular adenoma Family History Mother Substance abuse Essential hypertension Macular hole Heart disease Hyperlipidemia COPD (chronic obstructive pulmonary disease) Father Substance abuse Essential hypertension Heart disease Hyperlipidemia Neoplasm SKIN Sister Hyperlipidemia Neoplasm SKIN Grandfather Essential hypertension Heart disease Hyperlipidemia Neoplasm pancreatic/liver Grandmother Diabetes Alzheimer disease Heart disease Son Essential hypertension Depression Social History Smoking/Tobacco Use Status: Never Second Hand Exposure: Yes Smoking risk assessment performed?: Yes Alcohol Intake: never Drug use: Never Substance use type: does not use Household members: none Housing: apartment Number of Children: 2 Education Level: college 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 Pets and animals: Yes Pets and animals: cat(s) Sexually active: No Do you think of yourself as: straight/heterosexual Current gender identity: female What is your relationship status?: How often do you talk on the phone with friends or family?: once per week How often do you get together with friends or relatives?: decline to answer How often do you attend episcopal or oriental orthodox services?: decline to answer Do you belong to any clubs or organized social groups?: no Panel score (0-1 are the most socially isolated patients): 0 What type of physical activity do you participate in: none Frequency: does not exercise Monica/Restoration: Druze Special monica needs: No Seatbelt use: always Helmet use: No Drive intox or ride w/intox route cdl driver: No Do you feel safe at home: Yes Do you feel safe in your relationship?: Yes Additional Social history: Enjoys gardening, walking, Course Vital Signs Vital signs: Vital Signs Temperature 36.6 C 01/19/23 18:37 Pulse 73 01/19/23 18:37 Respiratory Rate 18 01/19/23 18:37 Blood Pressure 175/101 H 01/19/23 18:37 Pulse Oximetry 99 01/19/23 18:37 Temperature 35.9 C L 01/19/23 21:41 Temperature Source Tympanic 01/19/23 21:41 Pulse 60 01/19/23 21:41 Respiratory Rate 16 01/19/23 20:48 Respiratory Effort Normal, Non-Labored 01/19/23 20:18 Blood Pressure 177/103 H 01/19/23 21:41 Pulse Oximetry 100 01/19/23 21:41 Oxygen Delivery Method Room Air 01/19/23 21:41 Oxygen Flow Rate 0 01/19/23 21:41 Pain Level 0 01/19/23 21:41 Lab/Test Results Lab/Test Results: Laboratory Tests Range/Units 01/19/23 19:06 WBC (4.4-10.8) 10^3/uL 9.57 RBC (3.93-5.22) 10^6/uL 4.48 Hgb (11.2-15.7) g/dL 13.1 Hct (36.0-46.0) % 38.8 MCV (80-95) fL 87 MCH (27.0-33.0) pg 29.2 MCHC (32.0-36.0) % 33.8 RDW (11.7-14.6) % 12.6 Plt Count (130-400) 10^3/uL 318 MPV (8.0-11.0) fL 9.3 Immature Gran % 0.2 Neutrophils % 52.5 Lymphocytes % 38.0 Monocytes % 6.6 Eosinophils % 2.2 Basophils % 0.5 Nucleated RBC % (0.0-0.3) % 0.0 Absolute Neutrophils (1.2-6.7) 10^3/uL 5.02 Absolute Lymphocytes (1.2-3.4) 10^3/uL 3.64 H Absolute Monocytes (0.1-0.8) 10^3/uL 0.63 Absolute Eosinophils (0.0-0.7) 10^3/uL 0.21 Absolute Basophils (0.0-0.2) 10^3/uL 0.05 Sodium (136-145) mmol/L 141 Potassium (3.5-5.1) mmol/L 3.1 L Chloride (98-107) mmol/L 103 Carbon Dioxide (21.0-32.0) mmol/L 31.5 Anion Gap (3-11) mmol/L 6.5 BUN (7-18) mg/dL 15 Creatinine (0.55-1.02) mg/dL 0.7 Est GFR (CKD-EPI 2020) (mL/min/1.73m2) 99.57 Glucose (74-106) mg/dL 102 Calcium (8.5-10.1) mg/dL 9.1 Magnesium (1.8-2.4) mg/dL 1.6 L Total Bilirubin (0.2-1.0) mg/dL 0.3 AST (15-37) U/L 23 ALT (14-59) U/L 40 Alkaline Phosphatase (46-116) U/L 76 Troponin I (<or=60) ng/L < 50 Total Protein (6.4-8.2) g/dL 7.2 Albumin (3.4-5.0) g/dL 3.6 TSH (0.36-3.74) uIU/mL 1.71
== END 2023-01-19 21:48 | disposition home or self-care (01) ==
PROVIDERS: Emergency Provider Physician Assistant; PCP Family Medicine
DX: R51.9 Headache, unspecified (principal); I10 Essential (primary) hypertension; E78.5 Hyperlipidemia, unspecified; R42 Dizziness and giddiness
CPT/HCPCS: 80053; 93005; 99283; 83735; 84443; 84484; 85025; 93010; J8540

== ENCOUNTER 2023-04-21 03:35 | Outpatient (CLI) | payer BC, SELFPAY ==
[2023-04-21 17:22] LABS: Vitamin B12 459 pg/mL (193-986)
== END 2023-04-21 03:36 | disposition home or self-care (01) ==
LOC: LBO 03:41
PROVIDERS: PCP Family Medicine; Visit Provider Family Medicine
DX: R27.0 Ataxia, unspecified (principal)
CPT/HCPCS: 36415; 82607

== ENCOUNTER 2024-02-16 01:35 | Outpatient (CLI) | payer OTHER, SELFPAY ==
[2024-02-16 12:07] LABS: Anion Gap 9.4 mmol/L (3-11); BUN 16 mg/dL (7-18); CO2 30.6 mmol/L (21.0-32.0); CREATININE 1.1 mg/dL (0.55-1.02); Calcium 9.4 mg/dL (8.5-10.1); Chloride 103 mmol/L (98-107); Estimated GFR 57.52 (mL/min/1.73m2); Glucose 89 mg/dL (74-106); Potassium 3.7 mmol/L (3.5-5.1); Sodium 143 mmol/L (136-145)
== END 2024-02-16 01:36 | disposition home or self-care (01) ==
PROVIDERS: PCP Family Medicine; Visit Provider Family Medicine
DX: I10 Essential (primary) hypertension (principal)
CPT/HCPCS: 36415; 80048